=== PATIENT | female | born 1985 ===

== ENCOUNTER 2022-05-21 12:56 | Emergency (ER) | payer MEDICAID, SELFPAY ==
[2022-05-21 13:20] VITALS: BP 121/75; PULSE 71; RESP 18; TEMP 36.6; O2SAT 100; BMI 32.1
--- NOTE | 2022-05-21 13:27 | ED_ITS ---
HPI - Headache General Chief Complaint: Headache <Rodríguez Quiroga MD - Last Filed: 05/21/22 13:30> Stated Complaint: Migraine <Rodríguez Quiroga MD - Last Filed: 05/21/22 13:30> Time Seen by Provider: 05/21/22 13:47 <Rodríguez Quiroga MD - Last Filed: 05/21/22 13:30> Source: patient and step down nurse <Radha Cardoza NP - Last Filed: 05/21/22 17:41> Mode of arrival: ambulatory <Radha Cardoza NP - Last Filed: 05/21/22 17:41> Limitations: language barrier <Radha Cardoza NP - Last Filed: 05/21/22 17:41> History of Present Illness HPI Narrative: 37-year-old female with a history of nephrectomy, stroke with right-sided weakness, migraine disorder here with complaints of headache which wraps around like a band around the patient's head with pressure with photophobia and nausea. Patient reports 1 episode of vomiting last night. No phonophobia, dizziness. No weakness, numbness or tingling. Patient has history of migraines and states this feels similar. Patient reports she took Tylenol with continued headache. <Radha Cardoza NP - Last Filed: 05/21/22 17:41> Related Data Allergies/Adverse Reactions: Allergies Allergy/AdvReac Type Severity Reaction Status Date / Time famotidine Allergy Unknown Unknown Verified 05/21/22 14:25 <Rodríguez Quiroga MD - Last Filed: 05/21/22 13:30> Review of Systems Review of Systems: Yes all other systems are reviewed and are negative <Radha Cardoza NP - Last Filed: 05/21/22 17:41> Constitutional: Constitutional: Reports no additional constitutional complaints, Denies body ache(s), Denies chills, Denies fever(s), Reports headache(s) and Denies weakness <Radha Cardoza NP - Last Filed: 05/21/22 17:41> Eyes: Eyes: Reports no additional eye complaints, Denies change in vision and Reports photophobia <Radha Cardoza NP - Last Filed: 05/21/22 17:41> ENT: Reports system reviewed and no additional complaints, except as documented, Denies dizziness, Reports headache(s), Denies nasal congestion, Denies nasal discharge and Denies neck pain <Radha Cardoza NP - Last Filed: 05/21/22 17:41> Cardiovascular: Cardiovascular: Reports no additional cardiovascular complaints, Denies chest pain, Denies leg edema and Denies dyspnea <Radha Cardoza NP - Last Filed: 05/21/22 17:41> Respiratory: Respiratory: Reports no additional respiratory complaints, Denies cough and Denies dyspnea <Radha Cardoza NP - Last Filed: 05/21/22 17:41> Gastrointestinal: Gastrointestinal: Reports no additional gastrointestinal complaints, Denies abdominal pain, Denies diarrhea, Reports nausea and Reports vomiting <Radha Cardoza NP - Last Filed: 05/21/22 17:41> Genitourinary: Genitourinary: Reports no additional female genitourinary complaints and Denies urinary incontinence <Radha Cardoza NP - Last Filed: 05/21/22 17:41> Musculoskeletal: Musculoskeletal: Reports no additional musculoskeletal complaints, Denies back pain, Denies arthralgias, Denies joint swelling, Denies neck pain, Denies numbness and Denies tingling <Radha Cardoza NP - Last Filed: 05/21/22 17:41> Integumentary/Breasts: Skin/Breast: Reports system reviewed and no additional complaints, except as docu and Denies rash <Radha Cardoza NP - Last Filed: 05/21/22 17:41> Neurologic: Reports system reviewed and no additional complaints, except as documented, Denies Abnormal speech present, Denies dizziness, Reports headache(s), Denies numbness, Denies tingling and Denies weakness <Radha Cardoza NP - Last Filed: 05/21/22 17:41> [facility] Past Medical History Attestation statement: The following information was validated with the patient. <LYNNE Ambrose Last Filed: 05/21/22 17:41> Source: old records reviewed and nursing notes reviewed <Radha Cardoza NP - Last Filed: 05/21/22 17:41> Social History Social History: Social History Advance Directives: No Advance Directives Information Provided: Yes <Rodríguez Quiroga MD - Last Filed: 05/21/22 13:30> Physical Exam Vital Signs: Vital Signs: Last Vital Signs Temp 97.9 F 05/21/22 13:20 Pulse 71 05/21/22 13:20 Resp 18 05/21/22 13:20 BP 121/75 05/21/22 13:20 Pulse Ox 100 05/21/22 13:20 O2 Del Method 05/21/22 13:20 BMI result Body Mass Index 32.1 <Rodríguez Quiroga MD - Last Filed: 05/21/22 13:30> Vital Signs: Last Vital Signs Temp 97.9 F 05/21/22 13:20 Pulse 71 05/21/22 13:20 Resp 18 05/21/22 13:20 BP 121/75 05/21/22 13:20 Pulse Ox 100 05/21/22 13:20 O2 Del Method 05/21/22 13:20 BMI result Body Mass Index 32.1 <Radha Cardoza NP - Last Filed: 05/21/22 17:41> Const: General: cooperative, healthy appearing, comfortable and no acute distress <Radha Cardoza NP - Last Filed: 05/21/22 17:41> Orientation/consciousness: patient oriented x3 <Radha Cardoza NP - Last Filed: 05/21/22 17:41> Limitations: no limitations <Radha Cardoza NP - Last Filed: 05/21/22 17:41> HEENT: Head: Yes normal to inspection and No Temporal artery tenderness present <Radha Cardoza NP - Last Filed: 05/21/22 17:41> Ears: hearing grossly normal bilaterally and TM's normal bilaterally <Radha Cardoza NP - Last Filed: 05/21/22 17:41> General nose exam: Normal external nose present <Radha Cardoza NP - Last Filed: 05/21/22 17:41> Face and sinus: Yes normal facial exam <Radha Cardoza NP - Last Filed: 05/21/22 17:41> Mouth: Normal oral and palatal mucosa present <Radha Cardoza NP - Last Filed: 05/21/22 17:41> Throat: Yes posterior oropharynx normal, Yes tonsils normal and Yes uvula midline <Radha Cardoza NP - Last Filed: 05/21/22 17:41> Eyes: General: appearance normal, both eyes and all related structures <Radha Cardoza [employer] - Last Filed: 05/21/22 17:41> Pupils: Equal, round and reactive pupils present <Radha Cardoza [employer] T[employer] HELPER - Last Filed: 05/21/22 17:41> Direct Ophthalmoscopy: photophobia <Radha Cardoza NP - Last Filed: 05/21/22 17:41> Neck: Neck: Yes normal visual inspection, Yes full ROM, Yes no lymphadenopathy and Yes no meningeal signs <Radha Cardoza NP - Last Filed: 05/21/22 17:41> Chest: Chest palpation & inspection: normal inspection of the chest <Radha Cardoza NP - Last Filed: 05/21/22 17:41> Resp: Effort & Inspection: normal respiratory effort <Radha Cardoza NP - Last Filed: 05/21/22 17:41> Auscultation: clear to auscultation bilaterally <Radha Cardoza NP - Last Filed: 05/21/22 17:41> Cardio: Rate: regular rate <Radha Cardoza NP - Last Filed: 05/21/22 17:41> Rhythm: regular rhythm <Radha Cardoza NP - Last Filed: 05/21/22 17:41> Peripheral pulses: Peripheral pulses 2+ throughout <Radha Cardoza NP - Last Filed: 05/21/22 17:41> GI: Inspection: Yes normal to inspection <aRdha Cardoza NP - Last Filed: 05/21/22 17:41> Palpation (GI): Soft to palpation and nontender <Radha Cardoza NP - Last Filed: 05/21/22 17:41> Auscultation: normal bowel sounds <Radha Cardoza NP - Last Filed: 05/21/22 17:41> Back/Spine/Pelvis: Thoracic/Lumbar Spine: thoracic and lumbar spine normal to inspection <Radha Cardoza NP - Last Filed: 05/21/22 17:41> Skin: General skin exam: no rashes or lesions noted <Radha Cardoza NP - Last Filed: 05/21/22 17:41> Neuro: General: patient oriented x3, no meningeal signs, no focal motor deficits and normal sensation to monofilament <Radha Cardoza NP - Last Filed: 05/21/22 17:41> Cranial nerves: Yes CN's II-XII intact bilaterally, Yes Equal, round and reactive pupils present, Yes Bilaterally intact EOM present, Yes Nystagmus not present, Yes Normal facial strength present and Yes Midline tongue present <Radha Cardoza NP - Last Filed: 05/21/22 17:41> Cognition (Neuro): normal cognition <Radha Cardoza NP - Last Filed: 05/21/22 17:41> Speech: No Abnormal speech present <Radha Cardoza NP - Last Filed: 05/21/22 17:41> Gait exam (Neuro): Normal gait present <Radha Cardoza NP - Last Filed: 05/21/22 17:41> Motor exam (neuro): 5/5 motor strength present throughout <Radha Cardoza NP - Last Filed: 05/21/22 17:41> Sensory Exam: Normal double simultaneous stimulation for sensation <Radha Cardoza NP - Last Filed: 05/21/22 17:41> Extrem: General: Yes normal to inspection <Radha Cardoza NP - Last Filed: 05/21/22 17:41> Course Course Course Narrative: Pain is resolved. Patient tolerating p.o.. Will discharge home reviewed worrisome signs symptoms of when to return to the emergency room. Comfortable for discharge home. <Radha Cardoza NP - Last Filed: 05/21/22 17:41> Reevaluation(s) Reevaluation #1: 37 yo female with PMH of nephrectomy presents with migraine headache since yesterday. The patient only takes acetaminophen, and she was told she could not take any other medications for migraine headache. No other concerning symptoms at this time. <Rodríguez Quiroga MD - Last Filed: 05/21/22 13:30> Time: 13:27 <Rodríguez Quiroga MD - Last Filed: 05/21/22 13:30> Medications Administered Discontinued Medications Generic Name Dose Route Start Last Admin Trade Name Freq PRN Reason Stop Dose Admin Diphenhydramine HCl 25 mg 05/21/22 14:26 05/21/22 15:30 Diphenhydramine Hcl 50 Mg/Ml Vial IVPUSH 05/21/22 14:27 25 mg ONCE ONE Administration Sodium Chloride 1,000 mls @ 999 mls/hr 05/21/22 14:26 05/21/22 15:30 Ns IV 05/21/22 15:26 999 mls/hr .Q1H1M STA Administration Metoclopramide HCl 10 mg 05/21/22 14:26 05/21/22 15:30 Metoclopramide Hcl 10 Mg/2 Ml Vial IVPUSH 05/21/22 14:27 10 mg ONCE ONE Administration <Rodríguez Quiroga MD - Last Filed: 05/21/22 13:30> Medications Administered Discontinued Medications Generic Name Dose Route Start Last Admin Trade Name Freq PRN Reason Stop Dose Admin Diphenhydramine HCl 25 mg 05/21/22 14:26 05/21/22 15:30 Diphenhydramine Hcl 50 Mg/Ml Vial IVPUSH 05/21/22 14:27 25 mg ONCE ONE Administration Sodium Chloride 1,000 mls @ 999 mls/hr 05/21/22 14:26 05/21/22 15:30 Ns IV 05/21/22 15:26 999 mls/hr .Q1H1M STA Administration Metoclopramide HCl 10 mg 05/21/22 14:26 05/21/22 15:30 Metoclopramide Hcl 10 Mg/2 Ml Vial IVPUSH 05/21/22 14:27 10 mg ONCE ONE Administration <Radha Cardoza NP - Last Filed: 05/21/22 17:41> MDM - Headache MDM Narrative Medical decision making narrative: 37-year-old female with history of migraines, CVA with right-sided deficits, nephrectomy here with her complaints of headache since last night with photophobia, nausea and vomiting which feels similar to her previous migraines. She did take Tylenol with no relief and pain. Patient did not know also takes she came here. Patient has normal neuro exam. She reports right-sided arm weakness from a previous stroke but I do not appreciate any on exam. Vitals are stable. Will give IV fluids, Reglan, Benadryl. Will check COVID screen, urine . Low concern for meningitis with no reports of fever, meningeal signs, nuchal rigidity. Low concern for pseudotumor cerebri with no complaints of worsening headache with position changes. Low concern for temporal arteritis with no fever, temporal artery tenderness. <Radha Cardoza NP - Last Filed: 05/21/22 17:41> Differential Diagnosis Differential diagnosis: Likely migraine <Radha Cardoza NP - Last Filed: 05/21/22 17:41> Medical Records Attestation: I reviewed the patient's medical records. <Radha Cardoza NP - Last Filed: 05/21/22 17:41> Lab Data Attestation: I reviewed the patient's lab results. <Radha Cardoza NP - Last Filed: 05/21/22 17:41> Labs: Lab Results 05/21/22 05/21/22 Range/Units 14:55 14:59 Urine Test NEGATIVE (NEGATIVE) COVID-19 (VLAD) Negative (Negative) COVID-19 Clin Com See Note <Rodríguez Quiroga MD - Last Filed: 05/21/22 13:30> Lab Results 05/21/22 05/21/22 Range/Units 14:55 14:59 Urine Test NEGATIVE (NEGATIVE) COVID-19 (VLAD) Negative (Negative) COVID-19 Clin Com See Note <Radha Cardoza NP - Last Filed: 05/21/22 17:41> Discharge Plan Discharge Clinical Impression: Migraine <Rodríguez Quiroga MD - Last Filed: 05/21/22 13:30> Patient Disposition: Home, Self-Care <Rodríguez Quiroga MD - Last Filed: 05/21/22 13:30> Instructions: Migraine Headache (ED) <Rodríguez Quiroga MD - Last Filed: 05/21/22 13:30> Referrals: Physician,None [Primary Care Provider] - 1 week <Rodríguez Quiroga MD - Last Filed: 05/21/22 13:30> Stand Alone Forms: Work/School Release <Rodríguez Quiroga MD - Last Filed: 05/21/22 13:30> Interventions: ED Discharge Assessment Last Done: 05/21/22 17:28 <Rodríguez Quiroga MD - Last Filed: 05/21/22 13:30> Discharge Date/Time: 05/21/22 17:28 <Rodríguez Quiroga MD - Last Filed: 05/21/22 13:30> Print Language: Swedish <Rodríguez Quiroga MD - Last Filed: 05/21/22 13:30>
[2022-05-21 15:12] LABS: COVID-19 Test Negative (Negative); IDNOW Serial# 16C4AD1C
[2022-05-21 15:13] LABS: UPreg QC Valid YES; Urine Pregnancy NEGATIVE (NEGATIVE)
[2022-05-21] MEDS: diphenhydrAMINE HCL 50 MG/ML VIAL 25 MG IVPUSH (15:30)
[2022-05-21] MEDS: 0.9 % Sodium Chloride 1,000 ML 999 ML IV (15:30)
[2022-05-21] MEDS: Metoclopramide HCl 10 MG/2 ML VIAL IVPUSH (15:30)
== END 2022-05-21 17:28 | disposition home or self-care (01) ==
PROVIDERS: Nurse Practitioner Family; Emergency Provider Emergency Medicine
DX: G43.909 Migraine, unspecified, not intractable, without status migrainosus (principal); Z20.822 Contact with and (suspected) exposure to COVID-19; Z79.899 Other long term (current) drug therapy
CPT/HCPCS: 81025; 87635; 96374; 96375; 99283; 99284; J1200; J2765

== ENCOUNTER 2022-06-26 18:48 | Emergency (ER) | payer MEDICAID, SELFPAY ==
[2022-06-26 19:08] VITALS: BP 124/55; PULSE 78; RESP 18; TEMP 36.4; O2SAT 98; BMI 33.0
--- NOTE | 2022-06-26 19:15 | ED.URI ---
HPI - URI/Sore Throat General Chief Complaint: Upper Respiratory Symptoms <PASCUAL Morrow Last Filed: 06/26/22 19:17> Stated Complaint: flu like symptoms <PASCUAL Morrow Last Filed: 06/26/22 19:17> Time Seen by Provider: 06/26/22 19:22 <PASCUAL Morrow Last Filed: 06/26/22 19:17> Source: patient <PASCUAL Roman Last Filed: 06/26/22 21:26> Mode of arrival: ambulatory <PASCUAL Roman Last Filed: 06/26/22 21:26> Limitations: no limitations <PASCUAL Roman Last Filed: 06/26/22 21:26> History of Present Illness HPI Narrative: This is a 37-year-old female who tells me she only has 1 kidney presenting to the emergency department with complaints of sore throat, body aches, fatigue, malaise, subjective fevers and chills, dry cough, chest pain only with coughing x2 days. Patient tells me she has been around her who is currently COVID positive. She tells me with bothering her most is her sore throat. She tells me she took a rapid COVID test at home which was negative. Patient denies shortness of breath, nausea, vomiting, abdominal pain, diarrhea, constipation, weakness, vision changes, dizziness, head trauma. <PASCUAL Roman Last Filed: 06/26/22 21:26> Related Data Allergies/Adverse Reactions: Allergies Allergy/AdvReac Type Severity Reaction Status Date / Time famotidine Allergy Unknown Unknown Verified 05/21/22 14:25 <PASCUAL Morrow Last Filed: 06/26/22 19:17> Review of Systems Review of Systems: Constitutional : No Weight loss, No Fever, No Chills, + Fatigue, + Malaise ENT/Mouth : + sore throat, No Rhinorrhea Eyes: No Eye Pain, No Swelling, No Redness Cardiovascular : No Chest Pain, No SOB, No Dyspnea on Exertion, No Orthopnea, No Edema, No Palpitations Respiratory : + Cough, No Sputum, No Wheezing Gastrointestinal : No Nausea, No Vomiting, No Diarrhea, No Constipation, No abdominal Pain, No Hematochezia, No Melena Genitourinary : No Dysuria, No Urinary Frequency, No Hematuria, Musculoskeletal : No joint pain, + Myalgias, No Joint Swelling Skin : No Skin Lesions, No rash Neuro : No Weakness, No Numbness, No Dizziness, +No Headache Psych : No Anxiety/Panic, No Depression All other systems reviewed and are negative <PASCUAL Roman - Last Filed: 06/26/22 21:26> Yes all other systems are reviewed and are negative <PASCUAL Roman - Last Filed: 06/26/22 21:26> [facility] Past Medical History Attestation statement: The following information was validated with the patient. <PASCUAL Roman - Last Filed: 06/26/22 21:26> Source: old records reviewed and nursing notes reviewed <PASCUAL Roman - Last Filed: 06/26/22 21:26> Social History Social History: Social History Advance Directives: No Advance Directives Information Provided: No <PASCUAL Morrow - Last Filed: 06/26/22 19:17> Physical Exam Vital Signs: Vital Signs: Last Vital Signs Temp 97.6 F 06/26/22 19:08 Pulse 78 06/26/22 19:08 Resp 18 06/26/22 19:08 BP 124/55 L 06/26/22 19:08 Pulse Ox 98 06/26/22 19:08 O2 Del Method 06/26/22 19:08 BMI result Body Mass Index 33.0 <PASCUAL Morrow - Last Filed: 06/26/22 19:17> Vital Signs: Last Vital Signs Temp 97.6 F 06/26/22 19:08 Pulse 78 06/26/22 19:08 Resp 18 06/26/22 19:08 BP 124/55 L 06/26/22 19:08 Pulse Ox 98 06/26/22 19:08 O2 Del Method 06/26/22 19:08 BMI result Body Mass Index 33.0 vss <PASCUAL Roman - Last Filed: 06/26/22 21:26> Appearance: Alert.? Oriented X3.? No acute distress.? Head: Normocephalic, atraumatic, no step-offs or deformities Eyes: Pupils equal, round and reactive to light.? ENT: Pharynx normal.?Uvula midline. Normal tonsils no exudate, edema or errythema. Neck: Normal inspection.? Neck supple.? CVS: Normal heart rate and rhythm.? Pulses normal.? Respiratory: No respiratory distress.? Breath sounds normal.? Abdomen: Soft and nontender.? Skin: Skin warm and dry.? Normal skin color.? Normal skin turgor.? Extremities: No lower extremity edema.? No calf ttp. 5/5 strength to bilateral upper and lower extremities Neuro: Oriented X 3.? No motor deficit.? No sensory deficit. CN 2-12 intact . Normal [id number], [id number], steady tandem gait with normal coordination. <PASCUAL Roman - Last Filed: 06/26/22 21:26> Course Course Course Narrative: 19:15 - 37 yo [place] speaking female presenting with body aches, headaches, cough w/ chest pains, sore throat since yesterday. is home w/ COVID. Spo2 98%, lungs clear. Appears well. Will check viral swab. <PASCUAL Morrow - Last Filed: 06/26/22 19:17> Reevaluation(s) Reevaluation #1: Patient positive for COVID. Discussed antiviral medicine she tells me she will think about it and speak to her PCP and pharmacist. Educated on supportive measures. Educated patient on diagnosis and treatment plan, answered all question, patient verbalizes understanding. At this time patient will be discharged home, advised to return with new or worsening symptoms. Educated on worrisome signs and symptoms and when to return. At this time I feel comfortable discharge home. <PASCUAL Roman - Last Filed: 06/26/22 21:26> Time: : <PASCUAL Roman - Last Filed: 06/26/22 21:26> Medical Decision Making Medical Decision Making MDM Narrative: 1998 37-year-old female presents with viral symptoms x2 days. Patient reports is COVID positive. Physical examination benign. No signs of peritonsillar abscess, epiglottitis. No signs of pneumonia. Headache likely secondary to viral infection unlikely intracranial hemorrhage, stroke. Unlikely PE. Plan at this time viral testing <PASCUAL Roman Last Filed: 06/26/22 21:26> Lab Data Labs: Lab Results 06/26/22 Range/Units 19:16 Influenza Type A (PCR) NEGATIVE (Negative) Influenza Type B (PCR) NEGATIVE (Negative) RSV RNA Qual (PCR) NEGATIVE (Negative) SARS-CoV-2 RNA (RT-PCR) POSITIVE A (Negative) <PASCUAL Morrow Last Filed: 06/26/22 19:17> Lab Results 06/26/22 Range/Units 19:16 Influenza Type A (PCR) NEGATIVE (Negative) Influenza Type B (PCR) NEGATIVE (Negative) RSV RNA Qual (PCR) NEGATIVE (Negative) SARS-CoV-2 RNA (RT-PCR) POSITIVE A (Negative) <PASCUAL Roman Last Filed: 06/26/22 21:26> Critical Care Time Critical Care Time Critical Care Time: No <PASCUAL Roman Last Filed: 06/26/22 21:26> Discharge Plan Discharge Clinical Impression: Viral infection, COVID-19 <PASCUAL Morrow Last Filed: 06/26/22 19:17> Patient Disposition: Home, Self-Care <PASCUAL Morrow Last Filed: 06/26/22 19:17> Instructions: Viral Syndrome (ED), COVID-19 (Coronavirus Disease 2019) (ED) <PASCUAL Morrow Last Filed: 06/26/22 19:17> Additional Instructions: Take your medications as prescribed. If you were prescribed antibiotics today, it is important that you take your medication to their entirety, do not skip any doses, do not finish them early. Today you tested positive for COVID-19. Take Ibuprofen or Tylenol as needed for fevers or body aches. Quarantine for 5 days and ensure you wear a mask. After 5 days you should wear a mask for 5 days after that. Practice social distancing and good hand hygiene. Drink plenty of fluids. Follow-up with your primary care provider this week. Return to the emergency department with new or worsening symptoms. In case of emergency call 911 You can purchase a pulse oximeter from your local pharmacy or grocery store, and monitor your oxygen saturation if it goes below 94% you should return to the emergency department for further evaluation. <PASCUAL Morrow - Last Filed: 06/26/22 19:17> Referrals: [facility] [Primary Care Provider] - 2 days <PASCUAL Morrow - Last Filed: 06/26/22 19:17> Stand Alone Forms: Work/School Release <PASCUAL Morrow - Last Filed: 06/26/22 19:17>
[2022-06-26 20:21] LABS: Influenza A PCR NEGATIVE (Negative); Influenza B PCR NEGATIVE (Negative); Resp Syncy Virus RNA Qual PCR NEGATIVE (Negative); SARS COV2 PCR INHOUSE POSITIVE (Negative)
== END 2022-06-26 21:38 | disposition home or self-care (01) ==
PROVIDERS: Emergency Provider Emergency Medicine
DX: M79.10 Myalgia, unspecified site (principal); R50.9 Fever, unspecified; R07.89 Other chest pain; Z20.822 Contact with and (suspected) exposure to COVID-19
CPT/HCPCS: 0241U; 99282; 99283

== ENCOUNTER 2022-08-16 12:35 | Emergency (ER) | payer MEDICAID, SELFPAY ==
--- NOTE | ~2022-08-16 | CT_ITS ---
EXAMINATION: CERVICAL AND FACIAL BONE CT WITHOUT IV CONTRAST CLINICAL INFORMATION: Trauma to head and face COMPARISON: None TECHNIQUE: Axial images through the head and facial bones without IV contrast. Sagittal and coronal reconstructions on the technologist workstation. Patient dose 9 7 0 mg/cm. This CT examination was performed using dose optimization techniques as appropriate, variously including the following: *Automated exposure control *Adjustment of mA and/or kV according to patient size (this includes techniques or standardized protocols for targeted exams where dose is matched to indication/reason for exam; i.e. extremities or head) *Use of iterative reconstruction technique FINDINGS: Head CT: There is no evidence for an extra-axial collection. There is no evidence for intra-or extra-axial hemorrhage. The ventricles and extra-axial CSF spaces are appropriate. Chaparro-white matter differentiation is normal. 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 No mass, mass effect or acute infarct is seen. Review of bone windows is normal. Facial bone CT: There are bilateral age indeterminate nasal bone fractures. No associated soft tissue swelling is seen in these may not be acute. No other fracture is seen. There is minimal inflammatory change seen in the left maxillary sinus. Paranasal sinuses are otherwise clear. Mastoid air cells and middle ears are clear. The orbits are normal appearing. Poor dentition. Soft tissues are normal. CT/CT facial bones wo IV con IMPRESSION: Head CT: No acute findings. Facial bone CT: Bilateral nondisplaced age indeterminate nasal bone fractures. Clinical correlation recommended. No other fracture seen. Minimal inflammatory changes in the left maxillary sinus.
--- NOTE | ~2022-08-16 | CT_ITS ---
EXAMINATION: CERVICAL AND FACIAL BONE CT WITHOUT IV CONTRAST CLINICAL INFORMATION: Trauma to head and face COMPARISON: None TECHNIQUE: Axial images through the head and facial bones without IV contrast. Sagittal and coronal reconstructions on the technologist workstation. Patient dose 9 7 0 mg/cm. This CT examination was performed using dose optimization techniques as appropriate, variously including the following: *Automated exposure control *Adjustment of mA and/or kV according to patient size (this includes techniques or standardized protocols for targeted exams where dose is matched to indication/reason for exam; i.e. extremities or head) *Use of iterative reconstruction technique FINDINGS: Head CT: There is no evidence for an extra-axial collection. There is no evidence for intra-or extra-axial hemorrhage. The ventricles and extra-axial CSF spaces are appropriate. Chaparro-white matter differentiation is normal. 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 No mass, mass effect or acute infarct is seen. Review of bone windows is normal. Facial bone CT: There are bilateral age indeterminate nasal bone fractures. No associated soft tissue swelling is seen in these may not be acute. No other fracture is seen. There is minimal inflammatory change seen in the left maxillary sinus. Paranasal sinuses are otherwise clear. Mastoid air cells and middle ears are clear. The orbits are normal appearing. Poor dentition. Soft tissues are normal. CT/CT head/brain wo IV con IMPRESSION: Head CT: No acute findings. Facial bone CT: Bilateral nondisplaced age indeterminate nasal bone fractures. Clinical correlation recommended. No other fracture seen. Minimal inflammatory changes in the left maxillary sinus.
[2022-08-16 12:48] VITALS: BP 107/51; PULSE 89; RESP 20; TEMP 37.1; O2SAT 98; BMI 31.1
--- NOTE | 2022-08-16 12:50 | ED.WOUNDLAC ---
HPI - Wound/Laceration General Chief Complaint: Skin/Abscess/Foreign Body <PASCUAL Washington Last Filed: 08/16/22 12:52> Stated Complaint: dresser fell on nose at home <PASCUAL Washington Last Filed: 08/16/22 12:52> Time Seen by Provider: 08/16/22 14:15 <PASCUAL Washington Last Filed: 08/16/22 12:52> Source: patient <PASCUAL Bonner Last Filed: 08/16/22 17:10> Mode of arrival: ambulatory <PASCUAL Bonner Last Filed: 08/16/22 17:10> History of Present Illness HPI narrative: 37-year-old female with no significant past medical history presenting to the ED complaining nasal/forehead pain, swelling, and laceration s/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 Denies taking anticoagulation. Denies LOC. Reports was falling backwards however boyfriend caught her. Reports initial dizziness improved at present. Denies vision change/loss, nausea/vomiting, neck/back pain. Tetanus unknown <PASCUAL Bonner Last Filed: 08/16/22 17:10> Onset (ago): hour(s) <PASCUAL Bonner Last Filed: 08/16/22 17:10> Related Data Allergies/Adverse Reactions: Allergies Allergy/AdvReac Type Severity Reaction Status Date / Time famotidine Allergy Unknown Unknown Verified 05/21/22 14:25 <PASCUAL Washington Last Filed: 08/16/22 12:52> Review of Systems Review of Systems: Constitutional: No Fever, No Chills ENT/Mouth: +nasal pain, No Ear Pain, No Nasal Congestion, + Sinus Pain, No Hoarseness, No sore throat, No Rhinorrhea, No Swallowing Difficulty Cardiovascular: No Chest Pain, No SOB Respiratory: No Cough, No Sputum Gastrointestinal: No Nausea, No Vomiting, No Diarrhea, No Abdominal pain Genitourinary: No Hematuria, No Urinary Incontinence/retention Musculoskeletal: No joint pain, No Myalgias, No Joint Swelling Skin: + Skin Lesions, No rash Neuro: No Weakness, No Numbness, No Paresthesias, + dizziness (resolved), +headache <PASCUAL Bonner Last Filed: 08/16/22 17:10> Yes all other systems are reviewed and are negative <PASCUAL Bonner - Last Filed: 08/16/22 17:10> Constitutional: Constitutional: Reports as per HPI <PASCUAL Bonner - Last Filed: 08/16/22 17:10> Neurologic: Denies Abnormal speech present <PASCUAL Bonner - Last Filed: 08/16/22 17:10> [facility] Past Medical History Attestation statement: The following information was validated with the patient. <PASCUAL Bonner - Last Filed: 08/16/22 17:10> Social History Social History: Social History Advance Directives: No Advance Directives Information Provided: Yes <PASCUAL Washington - Last Filed: 08/16/22 12:52> Physical Exam Vital Signs: Vital Signs: Last Vital Signs Temp 98.4 F 08/16/22 16:09 Pulse 63 08/16/22 16:09 Resp 18 08/16/22 16:09 BP 119/73 08/16/22 16:09 Pulse Ox 99 08/16/22 16:09 O2 Del Method 08/16/22 16:09 BMI result Body Mass Index 31.1 <PASCUAL Washington - Last Filed: 08/16/22 12:52> Vital Signs: Last Vital Signs Temp 98.4 F 08/16/22 16:09 Pulse 63 08/16/22 16:09 Resp 18 08/16/22 16:09 BP 119/73 08/16/22 16:09 Pulse Ox 99 08/16/22 16:09 O2 Del Method 08/16/22 16:09 BMI result Body Mass Index 31.1 <PASCUAL Bonner - Last Filed: 08/16/22 17:10> Const: General: cooperative, healthy appearing and no acute distress <PASCUAL Bonner - Last Filed: 08/16/22 17:10> Orientation/consciousness: patient oriented x3 <PASCUAL Bonner - Last Filed: 08/16/22 17:10> Limitations: no limitations <PASCUAL Bonner - Last Filed: 08/16/22 17:10> HEENT: Other: + central and right-sided forehead with noted swelling and diffuse tenderness. No palpable skull depression. No crepitus. + nasal bridge with small closed laceration. Bleeding controlled. Nose symmetrical. No appreciable septal hematoma or epistaxis <PASCUAL Bonner - Last Filed: 08/16/22 17:10> Head: Yes normal to inspection, Yes atraumatic, No Beasley's sign, No palpable skull fracture and No raccoon eyes <PASCUAL Bonner - Last Filed: 08/16/22 17:10> Ears: hearing grossly normal bilaterally, TM's normal bilaterally and mastoids normal <PASCUAL Bonner - Last Filed: 08/16/22 17:10> General nose exam: no epistaxis and no foreign body in nares <PASCUAL Bonner - Last Filed: 08/16/22 17:10> Face and sinus: Yes normal facial exam <PASCUAL Bonner - Last Filed: 08/16/22 17:10> Throat: Yes posterior oropharynx normal, Yes tonsils normal, Yes uvula midline, No peritonsillar mass, No uvula laterally displaced and No uvular edema <PASCUAL Bonner - Last Filed: 08/16/22 17:10> Eyes: General: appearance normal, both eyes and all related structures <PASCUAL Bonner - Last Filed: 08/16/22 17:10> Pupils: Equal, round and reactive pupils present <PASCUAL Bonner Last Filed: 08/16/22 17:10> EOM: EOMs intact bilaterally <PASCUAL Bonner - Last Filed: 08/16/22 17:10> Neck: Other: No midline cervical spinous tenderness <PASCUAL Bonner - Last Filed: 08/16/22 17:10> Neck: Yes normal visual inspection and Yes no meningeal signs <PASCUAL Bonner - Last Filed: 08/16/22 17:10> Resp: Effort & Inspection: normal respiratory effort and no respiratory distress <PASCUAL Bonner Last Filed: 08/16/22 17:10> Auscultation: clear to auscultation bilaterally <Felicitas Poulshadyt, PA - Last Filed: 08/16/22 17:10> Cardio: Rate: regular rate <Felicitas Pouliot, PA - Last Filed: 08/16/22 17:10> Heart sounds: S1 normal heart sound present and S2 normal heart sound present <Felicitas Poulshadyt, PA - Last Filed: 08/16/22 17:10> GI: Inspection: Yes normal to inspection <Felicitas Poulshadyt, PA - Last Filed: 08/16/22 17:10> Palpation (GI): Soft to palpation, nontender, no guarding and not rigid <Felicitas Pouliot, PA - Last Filed: 08/16/22 17:10> : General: Yes no CVA tenderness <Felicitas Pouliot, PA - Last Filed: 08/16/22 17:10> Back/Spine/Pelvis: Other: No midline thoracic/lumbar spinous tenderness/step-off or deformity <Felicitas Poulshadyt, PA - Last Filed: 08/16/22 17:10> Back: no CVA tenderness <Felicitas Pouliot, PA - Last Filed: 08/16/22 17:10> Skin: Rashes: no rashes <Felicitas Poulshadyt, PA - Last Filed: 08/16/22 17:10> Wounds: no wounds <Felicitas Poulshadyt, PA - Last Filed: 08/16/22 17:10> Neuro: General: patient oriented x3, gait normal, tone normal, moves all extremities, no meningeal signs, no focal motor deficits and CN's II-XI intact bilaterally <Felicitas Poulshadyt, PA - Last Filed: 08/16/22 17:10> Cranial nerves: Yes CN's II-XII intact bilaterally and Yes Equal, round and reactive pupils present <Felicitas Pouliot, PA - Last Filed: 08/16/22 17:10> Cognition (Neuro): normal cognition <Felicitas Poulshadyt, PA - Last Filed: 08/16/22 17:10> Speech: No Abnormal speech present <Felicitas Poulshadyt, PA - Last Filed: 08/16/22 17:10> Gait exam (Neuro): Normal gait present <Felicitas Poulshadyt, PA - Last Filed: 08/16/22 17:10> Motor exam (neuro): 5/5 motor strength present throughout <PASCUAL Bonner Last Filed: 08/16/22 17:10> Extrem: General: Yes normal to inspection <PASCUAL Bonner - Last Filed: 08/16/22 17:10> Course Course Course Narrative: E-12:51PM - 37yoF presenting to the ER with complaints of headache and nose pain after a large frame fell on her face prior to arrival. She reports she did not fall down to the ground due to her was able to catch her. She took Tylenol prior to arrival. She denies any other symptoms complaints or concerns or injuries at this time. Plan: Will obtain CT scan of facial bones and CT scan of brain patient will be sent back to waiting room to be evaluated in EM. <PASCUAL Washington - Last Filed: 08/16/22 12:52> E-12:51PM - 37yoF presenting to the ER with complaints of headache and nose pain after a large frame fell on her face prior to arrival. She reports she did not fall down to the ground due to her was able to catch her. She took Tylenol prior to arrival. She denies any other symptoms complaints or concerns or injuries at this time. Plan: Will obtain CT scan of facial bones and CT scan of brain patient will be sent back to waiting room to be evaluated in [facility]. CT head/brain wo IV con/CT facial bones wo IV con IMPRESSION: Head CT: No acute findings. ? Facial bone CT: Bilateral nondisplaced age indeterminate nasal bone fractures. Clinical correlation recommended. No other fracture seen. Minimal inflammatory changes in the left maxillary sinus.? Results discussed with patient including worrisome signs and symptoms and strict return precautions, and when to return to the emergency department. They verbalized understanding and feel safe for discharge at this time. <PASCUAL Bonner Last Filed: 08/16/22 17:10> Medications Administered Discontinued Medications Generic Name Dose Route Start Last Admin Trade Name Freq PRN Reason Stop Dose Admin Diphtheria/Tetanus/Acell Pertussis 0.5 ml 08/16/22 15:47 08/16/22 16:11 Diphth,Pertus(Acell),Tet Adult 0.5 Ml Syringe IM 08/16/22 15:48 0.5 ml .ONCE ONE Administration <PASCUAL Washington - Last Filed: 08/16/22 12:52> Medications Administered Discontinued Medications Generic Name Dose Route Start Last Admin Trade Name Cooper PRN Reason Stop Dose Admin Diphtheria/Tetanus/Acell Pertussis 0.5 ml 08/16/22 15:47 08/16/22 16:11 Diphth,Pertus(Acell),Tet Adult 0.5 Ml Syringe IM 08/16/22 15:48 0.5 ml .ONCE ONE Administration <PASCUAL Bonner - Last Filed: 08/16/22 17:10> Medical Decision Making Medical Decision Making MDM Narrative: 37-year-old female with no significant past medical history presenting to the ED complaining nasal/forehead pain, swelling, and laceration s/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 On exam vital signs stable, NAD, nontoxic appearing, physical exam as above. Concern for hematoma vs facial bone fractures. Low suspicion for ICH. No evidence of infection at this time. No septal hematoma Plan: Head/facial bone CT, update tetanus, Dermabond wound Please refer to course for remaining clinical decision making, interpretation of labs/imaging results, and discussions with consultants and/or family members. <PASCUAL Bonner - Last Filed: 08/16/22 17:10> Differential Diagnosis Differential Diagnoses: The differential diagnosis associated with the presentation includes <PASCUAL Bonner - Last Filed: 08/16/22 17:10> As above <PASCUAL Bonner - Last Filed: 08/16/22 17:10> Radiology Impression Discussion of test interpretation with radiology: I have reviewed the radiologist's reading. <PASCUAL Bonner - Last Filed: 08/16/22 17:10> Procedures Laceration Laceration 1: Site: face <PASCUAL Bonner Last Filed: 08/16/22 17:10> Size (cm): 1 <PASCUAL Bonner - Last Filed: 08/16/22 17:10> Description: flap <PASCUAL Bonner - Last Filed: 08/16/22 17:10> Depth: simple, single layer <PASCUAL Bonner - Last Filed: 08/16/22 17:10> Pre-repair: irrigated extensively <PASCUAL Bonner - Last Filed: 08/16/22 17:10> Skin layer closed with: other (Dermabond) <PASCUAL Bonner - Last Filed: 08/16/22 17:10> Discharge Plan Discharge Clinical Impression: Closed nondisplaced fracture of nasal bone, Laceration of nose <PASCUAL Washington - Last Filed: 08/16/22 12:52> Patient Disposition: Home, Self-Care <PASCUAL Washington - Last Filed: 08/16/22 12:52> Instructions: Nasal Fracture (ED), Facial Laceration (ED) <PASCUAL Washington - Last Filed: 08/16/22 12:52> Additional Instructions: You have bilateral nondisplaced nasal bone fractures Avoid any increased pressure in her head, nasal blowing, or injury Skin glue was applied to your cut, do not pick this will follow-up on its own Take Tylenol and Motrin. Ice your face If pain persists or worsen/becomes unbearable you develop constant or worsening headache, persistent nausea/vomiting or vision changes return to the ED Tiene fracturas ?seas nasales bilaterales sin desplazamiento. Evite cualquier aumento de presi?n en la shannon, sonarse la nariz o lesionarse. Vivian Tylenol y Motrin. Hielo en la anny Se aplic? pegamento para la piel a pike araceli, no lo escoja, esto dmitry? un seguimiento por s? solo Si el dolor persiste o empeora/se vuelve insoportable, presenta dolor de shannon torri o que empeora, n?useas/v?mitos persistentes o cambios en la visi?n. Vuelva al servicio de urgencias. <PASCUAL Washington - Last Filed: 08/16/22 12:52> Referrals: Physician,Unknown J [Primary Care Provider] - 5 days <PASCUAL Washington Last Filed: 08/16/22 12:52> Stand Alone Forms: Work/School Release <PASCUAL Washington Last Filed: 08/16/22 12:52> Interventions: ED Discharge Assessment Last Done: 08/16/22 16:18 <PASCUAL Washington - Last Filed: 08/16/22 12:52> Discharge Date/Time: 08/16/22 16:19 <PASCUAL Washington - Last Filed: 08/16/22 12:52> Print Language: Kyrgyz <PASUCAL Washington - Last Filed: 08/16/22 12:52>
[2022-08-16 16:09] VITALS: BP 119/73; PULSE 63; RESP 18; TEMP 36.9; O2SAT 99
[2022-08-16] MEDS: Diphth,Pertus(ACell),Tet Adult 0.5 ML SYRINGE IM (16:11)
== END 2022-08-16 16:19 | disposition home or self-care (01) ==
PROVIDERS: Emergency Provider Emergency Medicine
DX: S02.2XXA Fracture of nasal bones, initial encounter for closed fracture (principal); S01.21XA Laceration without foreign body of nose, initial encounter; W20.8XXA Other cause of strike by thrown, projected or falling object, initial encounter; Y93.9 Activity, unspecified; Y92.039 Unspecified place in apartment as the place of occurrence of the external cause; Y99.9 Unspecified external cause status
CPT/HCPCS: 12011; 70450; 70486; 90471; 90715; 99282; 99284

== ENCOUNTER 2023-03-31 11:55 | Emergency (ER) | payer MEDICAID, SELFPAY ==
--- NOTE | 2023-03-31 11:58 | ECG_ITS ---
Test Reason : kidney Blood Pressure : / mmHG Vent. Rate : 063 BPM Atrial Rate : 063 BPM P-R Int : 126 ms QRS Dur : 078 ms QT Int : 446 ms P-R-T Axes : 043 -12 -03 degrees QTc Int : 456 ms Normal sinus rhythm Possible Anterior infarct , age undetermined Abnormal ECG No previous ECGs available Referred By: Lilli Marti Electronically Signed By:ABILIO ARAIZA
[2023-03-31 13:21] VITALS: BP 107/44; PULSE 73; RESP 20; TEMP 36.2; O2SAT 99; BMI 35.8
--- NOTE | 2023-03-31 13:25 | ED.GENADULT ---
HPI - General Adult General Chief complaint: General Medical Stated complaint: Pelvic pain/cp Related Data Allergies Allergy/AdvReac Type Severity Reaction Status Date / Time famotidine Allergy Unknown Unknown Verified 05/21/22 14:25 Physical Exam ED Vital Signs: BMI result Body Mass Index 35.8 Course Course Course Narrative: This is an RME: Additional HPI, ROS, PE not included below will be deferred to primary provider. This is a [id number], with a hx of , presenting to the emergency department with a complaint of pelvic pain since yesterday. Reporting chest pain/discomfort x 1 week. Plan: EKG, labs, UA, further ER evaluation needed by primary provider for further diagnostics. Pt left without treatment prior to full eval by provider and before labs were performed. Discharge Plan Discharge Clinical Impression: Pelvic pain Patient Disposition: Left W/O Completing Treatment Discharge Date/Time: 03/31/23 19:53
== END 2023-03-31 19:53 | disposition left against medical advice (07) ==
LOC: HO.ED 19:49
PROVIDERS: Emergency Provider Emergency Medicine
DX: R07.89 Other chest pain (principal); R10.2 Pelvic and perineal pain
CPT/HCPCS: 93005; 99283

== ENCOUNTER 2023-03-31 17:51 | Outpatient (REF) | payer MEDICAID, SELFPAY ==
[2023-04-01 11:52] LABS: CT PCR NOT DETECTED (Not Detect.); NG PCR NOT DETECTED (Not Detect.)
[2023-04-01 12:08] LABS: BV Int Neg Control Negative (Negative); BV Int Pos Control Positive (Positive)
== END 2023-03-31 17:52 | disposition home or self-care (01) ==
LOC: HO.HHCLNP 17:51
PROVIDERS: Visit Provider Emergency Medicine
DX: R10.30 Lower abdominal pain, unspecified (principal); Z11.3 Encounter for screening for infections with a predominantly sexual mode of transmission
CPT/HCPCS: 0353U; 87480; 87510; 87660

== ENCOUNTER 2023-06-05 10:04 | Outpatient (REF) | payer MEDICAID, SELFPAY ==
[2023-06-05 10:31] LABS: MANUAL DIFF FLAG NO
[2023-06-05 11:10] LABS: Appearance Urine Clear; Color Urine Yellow; Glucose Urine UA Negative (Negative); Leukocyte Esterase Urine Negative (Negative); Nitrite Urine Negative (Negative); PH 6.5 (5.0-9.0); Specific Gravity - Urine 1.025 (1.005-1.025); Urine Blood Negative (Negative); Urine Ketones Negative (Negative); Urine Protein Trace mg/dL (Neg-Trace)
[2023-06-05 11:17] LABS: Basophils Absolute Auto 0.1 X10*3/uL (0.0-0.2); Basophils Percent Auto 0.5 % (0-2); Eosinophils Absolute Auto 0.2 X10*3/uL (0.0-0.4); Eosinophils Percent Auto 1.9 % (0-4); Hematocrit 37.4 % (37.0-47.0); Hemoglobin 11.8 g/dl (12.0-16.0); Imm Gran Abs Auto 0.06 X10*3/uL (0.00-0.03); Imm Gran Pct Auto 0.6 % (0.0-0.4); Lymphocytes Absolute Auto 2.3 X10*3/uL (1.2-4.9); Lymphocytes Percent Auto 21.3 % (20-40); Mean Corpuscular HGB Conc 31.6 g/dl (31.0-35.0); Mean Corpuscular Hemoglobin 26.3 pg (27.0-33.0); Mean Corpuscular Volume 83.5 fL (80.0-98.0); Mean Platelet Volume 11.3 fL (9.4-12.3); Monocytes Absolute Auto 0.6 X10*3/uL (0.1-1.2); Monocytes Percent Auto 5.7 % (2-11); Neutrophils Absolute Auto 7.6 x10*3/uL (2.0-8.3); Platelet Count 301 X10*3/uL (160-400); Red Blood Count 4.48 X10*6/uL (4.20-5.50); Red Cell Distribution Width 13.9 % (11.0-16.0); White Blood Count 10.8 X10*3/uL (4.8-10.8)
[2023-06-05 11:57] LABS: Creatinine Urine 287.64 mg/dL; Microalbum/Creatinine Ratio Ur 7.9 ug/mg cr (<30)
[2023-06-05 12:15] LABS: Anion Gap 10 (12-20); Blood Urea Nitrogen 7 mg/dL (9-16); Calcium 8.9 mg/dL (8.4-10.2); Carbon Dioxide 27 mmol/L (22-29); Chloride 106 mmol/L (96-108); Estimated Glomerular Filt Rate > 60; Potassium 3.4 mmol/L (3.3-5.1); Sodium 140 mmol/L (135-145)
== END 2023-06-05 10:05 | disposition home or self-care (01) ==
LOC: HO.LAB 10:04
PROVIDERS: Visit Provider Internal Medicine Nephrology
DX: N18.9 Chronic kidney disease, unspecified (principal)
CPT/HCPCS: 36415; 80051; 81003; 82043; 82310; 82565; 82570; 84520; 85025

== ENCOUNTER 2023-09-10 09:54 | Outpatient (REF) | payer MEDICAID, SELFPAY ==
[2023-09-10 12:04] LABS: HIV AB/AG Nonreactive (Nonreactive); HIV Num 1 0.05 S/CO (0.00-0.99); ~HepC Num1 0.15 S/CO (0.00-0.79); ~Hepatitis C Antibody Nonreactive (Nonreactive)
[2023-09-10 12:16] LABS: Anion Gap 12 (12-20); Blood Urea Nitrogen 9 mg/dL (9-16); Carbon Dioxide 26 mmol/L (22-29); Chloride 104 mmol/L (96-108); Cholesterol 231 mg/dL (<200); Estimated Glomerular Filt Rate > 60; Glucose Random 97 mg/dL (60-115); HDL Cholesterol 47 mg/dL (>40); LDL Cholesterol Calculated 148 mg/dL (<100); Potassium 3.9 mmol/L (3.3-5.1); Sodium 138 mmol/L (135-145); Triglycerides 181 mg/dL (<150)
[2023-09-10 12:40] LABS: TSH reflex Free T4 2.44 uIU/mL (0.32-4.0)
[2023-09-10 15:23] LABS: Estimated Average Glucose 108 mg/dL; Hemoglobin A1c % 5.4 % (<6.0)
[2023-09-11 11:21] LABS: CT PCR NOT DETECTED (Not Detect.); NG PCR NOT DETECTED (Not Detect.)
== END 2023-09-10 09:55 | disposition home or self-care (01) ==
LOC: HO.HHCL 09:54
PROVIDERS: Visit Provider Nurse Practitioner Family
DX: Z00.00 Encounter for general adult medical examination without abnormal findings (principal); Z11.4 Encounter for screening for human immunodeficiency virus [HIV]; Z11.3 Encounter for screening for infections with a predominantly sexual mode of transmission; R53.83 Other fatigue
CPT/HCPCS: 0353U; 36415; 80048; 80061; 83036; 84443; 86803; 87389

== ENCOUNTER 2023-09-23 02:10 | Emergency (ER) | payer MEDICAID, SELFPAY ==
[2023-09-23 02:23] VITALS: BP 147/69; PULSE 80; RESP 16; TEMP 36.3; O2SAT 100; BMI 33.1
--- NOTE | 2023-09-23 03:08 | PC.NURSE ---
phlebotomy supervisor at bedside. pt a&ox4, respirations even and unlabored. pt reporting onset of neck pain and neck spasm for one day. pt reports throat pain. pt throat noted to be red, no white spots noted. pt reports it hurts to swollow liquids but reports normal PO intake.
[2023-09-23 03:14] VITALS: BP 126/72; PULSE 75; RESP 16; TEMP 36.6; O2SAT 97
[2023-09-23 03:30] LABS: IDNOW Serial# 6674DD1D; Strep A Nucleic Acid Negative (Negative)
--- NOTE | 2023-09-23 03:49 | ED_ITS ---
HPI - Neck Pain/Injury General Chief Complaint: Neck Pain/Injury Stated Complaint: gen med Time Seen by Provider: 09/23/23 02:38 Source: patient Mode of arrival: ambulatory Limitations: no limitations History of Present Illness HPI Narrative: Patient woke up yesterday morning with pain in the left side of the neck also complaining of slight sore throat for last 24 hours no fever no chills no neck injury no paresthesia in the upper extremities Related Data Previous Rx's Medication Instructions Recorded cyclobenzaprine 10 mg tablet 10 mg PO Q8H #20 tabs 09/23/23 ibuprofen 600 mg tablet 600 mg PO Q6H PRN fever or pain 09/23/23 #30 tabs Allergies Allergy/AdvReac Type Severity Reaction Status Date / Time famotidine Allergy Unknown Unknown Verified 09/23/23 02:28 Review of Systems Review of Systems: Yes all other systems are reviewed and are negative [facility] Social History Social History Smoked in Last 30 Days: No Use of substances other than those prescribed or required for medical reasons: No Advance Directives: No Patient : No Physical Exam Vital Signs: Vital Signs: Last Vital Signs Temp 97.9 F 09/23/23 06:35 Pulse 86 09/23/23 06:35 Resp 16 09/23/23 06:35 BP 137/83 09/23/23 06:35 Pulse Ox 97 09/23/23 06:35 O2 Del Method Room Air 09/23/23 06:35 BMI result Body Mass Index 33.1 Appearance: Alert. Oriented X3. No acute distress. ENT: Pharynx normal. Oral Mucosa moist Neck: Normal inspection. Neck supple. Tenderness left sternocleidomastoid muscle no lymph node palpable CVS: Normal heart rate and rhythm. Pulses normal. Respiratory: No respiratory distress. Equal air entry bilateral, no wheezing/rales/rhonchi Abdomen: Soft and nontender. Skin: Skin warm and dry. Normal skin color. Normal skin turgor. Extremities: No lower extremity edema. No calf tenderness Neuro: Oriented X 3. No motor deficit. No sensory deficit. Medications Administered Discontinued Medications Generic Name Dose Route Start Last Admin Trade Name Freq PRN Reason Stop Dose Admin Cyclobenzaprine HCl 10 mg 09/23/23 03:56 09/23/23 04:12 Cyclobenzaprine Hcl 10 Mg Tablet PO 09/23/23 03:57 10 mg ONCE ONE Administration Medical Decision Making Medical Decision Making [facility] Narrative: Patient with left sternocleidomastoid muscle spasm will give ibuprofen and Flexeril strep is negative Differential Diagnosis Differential Diagnoses: The differential diagnosis associated with the presentation includes Strep throat/muscle spasm Lab Data [facility] Lab Attestation statement: I reviewed the patient's lab results. Labs: Lab Results 09/23/23 Range/Units 03:18 Influenza Type A (PCR) NEGATIVE (Negative) Influenza Type B (PCR) NEGATIVE (Negative) RSV RNA Qual (PCR) NEGATIVE (Negative) SARS-CoV-2 RNA (RT-PCR) NEGATIVE (Negative) S. pyogenes GrpA KAYLA Negative (Negative) Discharge Plan Discharge Clinical Impression: Torticollis Patient Disposition: Home, Self-Care Instructions: Spasmodic Torticollis (ED) Additional Instructions: Take ibuprofen for pain Flexeril for muscle relaxant Apply ice pack Your spasm should get better in next few days Follow with PCP Prescriptions: New cyclobenzaprine 10 mg tablet 10 mg PO Q8H Qty: 20 0RF ibuprofen 600 mg tablet 600 mg PO Q6H PRN (Reason: fever or pain) Qty: 30 0RF Interventions: ED Discharge Assessment Last Done: 09/23/23 06:35 Discharge Date/Time: 09/23/23 06:42 Print Language: Greek
[2023-09-23 04:00] VITALS: BP 120/63; PULSE 69; RESP 16; TEMP 36.6; O2SAT 99
[2023-09-23 04:02] LABS: Influenza A PCR NEGATIVE (Negative); Influenza B PCR NEGATIVE (Negative); Resp Syncy Virus RNA Qual PCR NEGATIVE (Negative); SARS COV2 PCR INHOUSE NEGATIVE (Negative)
[2023-09-23] MEDS: Cyclobenzaprine HCl 10 MG TABLET PO (04:12)
[2023-09-23 06:00] VITALS: BP 137/83; PULSE 86; RESP 16; TEMP 36.6; O2SAT 97
[2023-09-23 06:35] VITALS: BP 137/83; PULSE 86; RESP 16; TEMP 36.6; O2SAT 97
== END 2023-09-23 06:42 | disposition home or self-care (01) ==
PROVIDERS: Emergency Provider Internal Medicine
DX: M43.6 Torticollis (principal); M54.2 Cervicalgia; Z11.52 Encounter for screening for COVID-19; Z20.822 Contact with and (suspected) exposure to COVID-19
CPT/HCPCS: 0241U; 87651; 99283; 99284

== ENCOUNTER 2023-10-08 15:11 | Outpatient (REF) | payer MEDICAID, SELFPAY ==
[2023-10-10 22:28] LABS: TS Negative Control Passed; TS Panel A 0; TS Panel B 0; TS Positive Control Passed; TSpotTB Negative (Negative)
== END 2023-10-08 15:12 | disposition home or self-care (01) ==
LOC: HO.HHCL 15:11
PROVIDERS: Visit Provider Nurse Practitioner Family
DX: Z11.1 Encounter for screening for respiratory tuberculosis (principal)
CPT/HCPCS: 36415; 86481

== ENCOUNTER 2023-11-05 12:00 | Outpatient (RCR) | payer MEDICAID, SELFPAY | END 2023-12-31 13:00 | disposition home or self-care (01) | LOC: HO.PT 12:00 | PROVIDERS: PCP Nurse Practitioner Family; Visit Provider Nurse Practitioner Family | DX: M25.562 Pain in left knee (principal) | CPT/HCPCS: 97110; 97140; 97161 ==

== ENCOUNTER 2023-11-25 19:35 | Emergency (ER) | payer MEDICAID, SELFPAY ==
[2023-11-25 19:51] VITALS: BP 126/64; PULSE 80; RESP 18; TEMP 36.2; O2SAT 100; BMI 22.2
--- NOTE | 2023-11-25 19:53 | ED.GENADULT ---
HPI - General Adult General Chief complaint: Allergic Reaction Stated complaint: rash all over body Time Seen by Provider: 11/25/23 22:37 Source: patient Mode of arrival: ambulatory Limitations: no limitations History of Present Illness ED Provider: dwain MCCALL narrative: Complaining of hives all over the body started yesterday had similar rash a month ago unknown agent does not remember any new food or chemical use no lip or tongue swelling no shortness a breath patient took 1 Benadryl prior to arrival without much response Related Data Previous Rx's ?Medication ?Instructions ?Recorded cyclobenzaprine 10 mg tablet 10 mg PO Q8H #20 tabs 09/23/23 ibuprofen 600 mg tablet 600 mg PO Q6H PRN fever or pain 09/23/23 #30 tabs diphenhydramine HCl 25 mg capsule 50 mg (2 x 25 mg) PO Q6-8H PRN 11/26/23 (Benadryl) allergic reaction #30 caps prednisone 20 mg tablet 40 mg (2 x 20 mg) PO DAILY #10 tabs 11/26/23 Allergies Allergy/AdvReac Type Severity Reaction Status Date / Time famotidine Allergy Unknown Unknown Verified 11/25/23 19:54 Review of Systems Review of Systems: Yes all other systems are reviewed and are negative PMFSH Social History Social History Smoked in Last 30 Days: No Use of substances other than those prescribed or required for medical reasons: No Advance Directives: No Advance Directives Information Provided: No Do you have a plan to hurt others: No Plan Patient : No Physical Exam ED Vital Signs: Vital Signs - 24 hr 11/25/23 19:51 11/25/23 21:42 11/26/23 00:15 Temperature 97.1 F 98 F 98.2 F Pulse Rate 80 88 86 Respiratory Rate 18 20 16 Blood Pressure 126/64 133/77 128/70 Pulse Oximetry 100 100 100 Oxygen Delivery Method Room Air Room Air Room Air 11/26/23 00:30 Temperature 98.2 F Pulse Rate 86 Respiratory Rate 16 Blood Pressure 128/70 Pulse Oximetry 100 Oxygen Delivery Method Room Air BMI result Body Mass Index 22.2 Appearance: Alert. Oriented X3. No acute distress. ENT: Pharynx normal. Oral Mucosa moist, lips and tongue normal Neck: Normal inspection. Neck supple. CVS: Normal heart rate and rhythm. Pulses normal. Respiratory: No respiratory distress. Equal air entry bilateral, no wheezing/rales/rhonchi Abdomen: Soft and nontender. Bowel sounds are present, Skin: Skin warm and dry. Normal skin color. Normal skin turgor. Extremities: No lower extremity edema. No calf tenderness Neuro: Oriented X 3. Course Course Course Narrative: RME performed by Rosa Emery PA-C. Patient is a 38 year old assigned female at presenting to the emergency department with a full body rash and possible allergic reaction. Patient states she has a full body rash and itching. Patient denies any new exposure to anything. Detailed physical exam and review of systems are deferred to the veterinary inspector. Patient placed back in the waiting room pending room availability. Medications Administered Discontinued Medications Generic Name Dose Route Start Last Admin Trade Name Freq PRN Reason Stop Dose Admin Dexamethasone 10 mg 11/25/23 22:59 11/25/23 23:50 Dexamethasone 2 Mg Tablet PO 11/25/23 23:00 10 mg ONCE ONE Administration Diphenhydramine HCl 50 mg 11/25/23 22:59 11/25/23 23:50 Diphenhydramine Hcl 25 Mg Capsule PO 11/25/23 23:00 50 mg ONCE ONE Administration Medical Decision Making Medical Decision Making [facility] Narrative: Patient with hives/urticaria from unknown agent feeling better after Decadron and Benadryl discharge patient home Discharge Plan Discharge Clinical Impression: Urticaria Patient Disposition: Home, Self-Care Instructions: Urticaria (ED) Additional Instructions: Take medication as prescribed and follow the PCP for further testing Prescriptions: New prednisone 20 mg tablet 40 mg PO DAILY Qty: 10 0RF diphenhydramine HCl [Benadryl] 25 mg capsule 50 mg PO Q6-8H PRN (Reason: allergic reaction) Qty: 30 0RF No Action cyclobenzaprine 10 mg tablet 10 mg PO Q8H Qty: 20 0RF ibuprofen 600 mg tablet 600 mg PO Q6H PRN (Reason: fever or pain) Qty: 30 0RF Interventions: ED Discharge Assessment Last Done: 11/26/23 00:30 Discharge Date/Time: 11/26/23 00:30 Print Language: Icelandic
[2023-11-25 21:42] VITALS: BP 133/77; PULSE 88; RESP 20; TEMP 36.6; O2SAT 100
[2023-11-25] MEDS: dexAMETHasone 2 MG TABLET 10 MG PO (23:50)
[2023-11-25] MEDS: diphenhydrAMINE HCL 25 MG CAPSULE 50 MG PO (23:50)
[2023-11-26 00:15] VITALS: BP 128/70; PULSE 86; RESP 16; TEMP 36.8; O2SAT 100
[2023-11-26 00:30] VITALS: BP 128/70; PULSE 86; RESP 16; TEMP 36.8; O2SAT 100
== END 2023-11-26 00:30 | disposition home or self-care (01) ==
PROVIDERS: Emergency Provider Internal Medicine
DX: L50.9 Urticaria, unspecified (principal); R21 Rash and other nonspecific skin eruption
CPT/HCPCS: 99283; 99284; J8540

== ENCOUNTER 2024-03-05 17:30 | Outpatient (REF) | payer MEDICAID, SELFPAY | END 2024-03-05 17:31 | disposition home or self-care (01) | LOC: HO.HHCLNP 17:30 | PROVIDERS: Visit Provider Nurse Practitioner Family | DX: R30.0 Dysuria (principal) | CPT/HCPCS: 87086 ==

== ENCOUNTER 2024-03-25 13:56 | Outpatient (AMB) | payer MEDICAID, SELFPAY ==
--- NOTE | 2024-03-25 14:00 | A.OFFVIS_ITS ---
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 Patient is not clear but says about 10 years ago she had an event in [place] where she had numbness and heaviness on the right side of the face and her tongue as well as right-sided for body. She was told that she had a TIA. However this is difficult to corroborate. She had a head CT last year which showed no acute intracranial pa thology. She says since then she has been having some cardiac symptoms. Mostly at nighttime she describes sharp pressure like stabbing symptoms in his chest which come and go. Symptoms last for 20 minutes to an hour. There is no clear pattern to it. On further asking if patient has palpitation she was not clear. She is awake historian. She does not get any symptoms with exertion. She is cu rrently not on any medication. She has no significant cardiovascular risk factors. She was told that she had cardiac arrhythmia although she has no details on it. She also has no details under family history although she says she has family history of cardiac issues. She denies any heart failure symptoms. Denies any lightheadedness, syncope. She also has constant headache almost every day where she feels squeezing sensation in her entire head and sometimes only on the right side of that with numbness. Review of Systems Const Denies chills, Denies daytime sleepiness, Denies fatigue, Denies fever(s), Denies frequent falls, Denies poor appetite, Denies snoring, Denies stops breathing during sleep, Denies weakness, Denies weight gain and Denies weight loss Eyes Denies loss of vision ENT Denies dizziness and Denies hearing loss Card Denies chest pain, Denies claudication, Denies leg edema, Denies lightheadedness, Denies palpitations, Denies dyspnea, Denies dyspnea on exertion and Denies orthopnea Resp Denies cough, Denies excessive phlegm production, Denies dyspnea, Denies dyspnea on exertion, Denies snoring and Denies wheezing GI Denies abdominal pain, Denies hematochezia, Denies change in bowel habits, Denies nausea and Denies vomiting Denies urinary frequency and Denies dysuria Musc Denies arthralgias, Denies muscle weakness, Denies numbness and Denies other (frequent falls) Skin/Breast Denies nail changes and Denies rash Neuro Denies Abnormal speech present, Denies dizziness, Denies frequent falls, Denies loss of vision, Denies memory loss, Denies numbness and Denies weakness Psych Denies depression and Denies memory loss Endo Denies fatigue and Denies palpitations Lobito/Lymph Reports easy bruising and Reports other (anemia) Aller/Immun Denies wheezing Physical Exam Vital Signs: Last Vital Signs Pulse 65 03/25/24 14:04 BP 120/74 03/25/24 14:04 BMI result Body Mass Index 35.1 Const General: cooperative, comfortable, no acute distress, alert and awake Nutritional Appearance: obese Orientation/consciousness: patient oriented x3 Limitations: no limitations HEENT Head: Yes normocephalic and Yes atraumatic Neck Neck: Yes trachea midline, Yes supple and Yes no JVD Resp Effort & Inspection: normal respiratory effort Auscultation: clear to auscultation bilaterally Cardio Jugular venous distension: no JVD Palpation: normal PMI Rate: regular rate Rhythm: regular rhythm Heart sounds: S1 normal heart sound present, S2 normal heart sound present, no click, no gallops, no murmurs and no rubs GI Inspection: Yes obesity Auscultation: normal bowel sounds Skin General skin exam: no rashes or lesions noted Neuro General: patient oriented x3 and no focal motor deficits Speech: No Abnormal speech present Extrem General: Yes no clubbing, cyanosis or edema Office Procedures EKG Details: EKG shows normal sinus rhythm with poor R-wave progression most likely due to lead placement and body habitus [id number], Complete Assessment & Plan Assessment & Plan (1) Atypical chest pain: Code(s): R07.89 - Other chest pain Plan: Atypical chest pain which are very vague symptoms and patient was very vague historian. Patient symptoms are not suggestive of any cardiac issues. Cardiac arrhythmias can not be entirely ruled out. I would suggest her to undergo a 30 day event monitor to evaluate for any arrhythmias. Possible that she might have extra systoles such as PACs and PVCs giving her symptoms. Unlikely to have myocardial ischemia with no risk factors in her age. I will also obtain echocardiogram to assess for LV structure and regional wall motion abnormality given her poor R-wave progression which most likely is pseudo infarct pattern related to body habitus. Further treatment based on the finding of test results. Will follow up in the clinic if need be. Thank you for allowing me to partake in his care Medications: Discontinued cyclobenzaprine Discontinued Reason: Patient no longer taking 10 mg PO Q8H 20 tabs 0RF ibuprofen Discontinued Reason: Patient no longer taking 600 mg PO Q6H PRN 30 tabs 0RF fever or pain diphenhydramine HCl (Benadryl) Discontinued Reason: Patient no longer taking 50 mg (2 x 25 mg) PO Q6-8H PRN 30 caps 0RF allergic reaction prednisone Discontinued Reason: Patient no longer taking 40 mg (2 x 20 mg) PO DAILY 10 tabs 0RF Coding Level of Care Code New Pt Level 3 (99926) Diagnoses Atypical chest pain R07.89 CPT Codes EKG - CPT: 29090-[id number], Complete ([id number])
[2024-03-25 14:04] VITALS: BP 120/74; PULSE 65; BMI 35.1
== END 2024-03-25 14:36 | disposition home or self-care (01) ==
PROVIDERS: PCP Nurse Practitioner Family; Visit Provider Internal Medicine Cardiovascular Disease
DX: R07.89 Other chest pain (principal)
CPT/HCPCS: 93010; 99203

== ENCOUNTER → 2024-03-25 13:56 | Outpatient (BNVA) | payer MEDICAID, SELFPAY | PROVIDERS: PCP Nurse Practitioner Family; Visit Provider Internal Medicine Cardiovascular Disease | DX: R07.89 Other chest pain (principal); R94.31 Abnormal electrocardiogram [ECG] [EKG] | CPT/HCPCS: 93005; 99202 ==

== ENCOUNTER → 2024-04-16 12:43 | Outpatient (REF) | payer MEDICAID, SELFPAY ==
--- NOTE | 2024-04-16 12:48 | HM_ITS ---
* Total procedure length 30 days. Wear time 2.8 days. * Underlying rhythm is sinus with an average rate of 77/Min. * Supraventricular ectopy noted with a burden of 1%. * No significant arrhythmias. * No symptoms mentioned in diary. MTDD
--- NOTE | 2024-04-16 12:48 | CA_ITS ---
Transthoracic Echocardiogram Patient (Last, First, Middle): Haily Caal M Gender: Female Date of : 1985 Age: 39 Procedure Date: 04/16/2024 Procedure Type: Transthoracic Echocardiogram Location: OP Height: 154.94 cm Weight: 83.46 kg BSA: 1.82 m2 Heart Rate: bpm BP: 100 / 64 mmHg Machine Cloth Measurer: TO Referring MD: Burak Guardado MD Symptoms: R07.89 - Other chest pain Study Quality: Technically Difficult/Contrast ECG Rhythm: Sinus Conclusions: - The left ventricular systolic function is normal. The calculated ejection fraction is 65% by biplane method. - No obvious valvular pathology seen on this study. Findings Procedure Information Contrast agent, definity, is being given per protocol without apparent complications. Left Ventricle Normal left ventricular cavity size. There is normal left ventricular wall thickness. The left ventricular systolic function is normal. The calculated ejection fraction is 65% by biplane method. There is no evidence of regional wall motion abnormalities. Diastolic function is normal for age. Right Ventricle Normal right ventricular cavity size and systolic function. Atria Both atria are normal in size. Aortic Valve There is a normal trileaflet aortic valve. There is no aortic valve stenosis. There is no aortic valve regurgitation. Mitral Valve The mitral valve appears normal. There is no mitral valve regurgitation. There is no mitral valve stenosis. Pulmonic Valve The pulmonic valve is likely normal. Tricuspid Valve There is trace tricuspid valve regurgitation. There is no evidence of pulmonary hypertension. Great Vessels The asc aorta is normal in size. Venous The inferior vena cava is normal in size and collapses greater than 50% with inspiration. Pericardium/Pleural There is no evidence of pericardial effusion. Prior Study Comparison No prior study available for comparison. Recommendations, Care & Conclusions No obvious valvular pathology seen on this study. Measurements 2D Linear Measurements IVSd: 0.74 0.6-0.9/0.6-1.0 cm LVIDd: 4.64 3.9-5.3/4.2-5.9 cm LVIDd Index: 2.55 2.4-3.2/2.2-3.1 cm/m2 LVIDs: 2.83 2.0-3.6 cm LVPWd: 0.65 0.7-1.1 cm LA Diam: 3.20 2.7-3.8/3.0-4.0 cm LAIDs Index: 1.76 1.5-2.3 cm/m2 LV Mass: 124.02 67-162/88-224 g LV Mass Index: 68.14 43-95/49-115 g/m2 LVOT Diam: 1.90 3.0+(-)1.3 cm 2D Systolic Function EF 4C: 64.30 >55% EF 2C: 65.50 >55% EF BiP: 64.60 >55% Mitral Valve MV Pk E: 0.99 MV PK A: 0.51 MV Decel Time: 237.00 E/A: 1.90 E'Lateral: 12.00 E'Medial: 9.90 E/E' Med: 9.90 E/E' Lat: 8.20 PHT: 69.00 MVA PHT: 3.19 Decel [place]: 4.16 Aortic Valve AoV Pk Farhat: 1.59 AoV Mn Farhat: 1.06 AoV VTI: 0.33 AoV Pk Grad: 10.00 Aov Mn Grad: 5.00 JOSE Cont.VTI: 2.16 LVOT LVOT Pk Farhat: 1.14 LVOT Mn Farhat: 0.74 LVOT VTI: 0.25 LVOT Pk Grad: 5.00 LVOT Mn Grad: 3.00 LVOT Diam: 1.90 LVOT Area: 2.84 Diastolic Function MV Pk E: 0.99 MV Pk A: 0.51 E/A: 1.90 E'Medial: 9.90 E/E' Med: 9.90 E' Laterial: 12.00 E/E' Lat: 8.20 Right Ventricle TAPSE (mm): 23.00 TVS' Farhat: 12.50 Tricuspid Valve TR Pk Farhat: 2.02 TR Pk Grad: 16.00 RA Press: 3.00 RVSP: 19.00 Great Vessels Aorta Sinus of Valsalva: 2.86 2.0-3.5 cm Ao Asc: 2.60 2.1-3.4 cm Updated in Other Vendor System with Status of Final Scott Ogden MD electronically signed on 04/18/2024 9:31:05 AM with status of Final
== END ==
LOC: HO.CARD 12:43
PROVIDERS: PCP Nurse Practitioner Family; Visit Provider Internal Medicine Cardiovascular Disease
DX: R07.89 Other chest pain (principal)
CPT/HCPCS: 93270; 93306; Q9957

== ENCOUNTER → 2024-04-16 12:48 | Outpatient (BNV) | payer MEDICAID, SELFPAY | PROVIDERS: PCP Nurse Practitioner Family; Visit Provider Internal Medicine | DX: I47.10 Supraventricular tachycardia, unspecified (principal) | CPT/HCPCS: 93272; 93306 ==

== ENCOUNTER 2024-05-13 16:58 | Emergency (ER) | payer MEDICAID, SELFPAY ==
--- NOTE | ~2024-05-13 | XR_ITS ---
EXAMINATION: XR CHEST CLINICAL INFORMATION: Chest pain and cough COMPARISON: None available. TECHNIQUE: 2 views of the chest were obtained. FINDINGS: No significant abnormality is noted involving the heart, lungs, mediastinum, bony thorax or soft tissues. XR/XR chest 2V IMPRESSION: Unremarkable examination. Electronically signed by: Junito Bal MD 05/13/2024 06:14 PM [facility]
[2024-05-13 17:07] VITALS: BP 128/53; PULSE 84; RESP 20; TEMP 37.4; O2SAT 100; BMI 34.0
--- NOTE | 2024-05-13 17:07 | ED.URI ---
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 She states the nebs help but don't last. No one else is sick at home. Able to eat and drink MD elicited complaint: fever, cough and rhinorrhea Pertinent past history: asthma Onset (ago): day(s) (2) Consistency: constant Severity: mild Description of mucous: clear Able to tolerate fluids by mouth: Yes Exacerbating factors: other (coughing) Relieving factors: nothing Associated symptoms: chills, myalgias, headache, rhinorrhea, nasal congestion, cough and shortness of breath Treatments prior to arrival: other Related Data Previous Rx's ?Medication ?Instructions ?Recorded albuterol sulfate 2.5 mg/3 mL 2.5 mg (3 mL) inhalation Q4-6H PRN 05/13/24 (0.083 %) solution for nebulization bronchospasm #75 mL azithromycin 250 mg tablet 250 mg PO DAILY 4 days #4 tabs 05/13/24 Allergies Allergy/AdvReac Type Severity Reaction Status Date / Time famotidine Allergy Unknown Unknown Verified 05/13/24 17:09 Review of Systems Review of Systems: Constitutional : No Fever, pos Chills ENT/Mouth : No Hoarseness, No sore throat, pos Rhinorrhea Eyes: No Redness, No Discharge, No Vision Changes Cardiovascular : No Chest Pain, positive SOB, No Edema Respiratory : positive Cough, pos Sputum, positive Wheezing, Gastrointestinal : No Nausea, No Vomiting, No Diarrhea, No abdominal Pain Genitourinary : No Dysuria, No Hematuria Musculoskeletal : No joint pain, No Myalgias Skin : No rash Neuro : No Weakness, No Numbness, No Headache All other systems reviewed and are negative [facility] Past Medical History Attestation statement: The following information was validated with the patient. Source: old records reviewed Medical History Asthma Social History Social History (Updated 05/13/24 @ 18:44 by Lenora Hampton DO) Patient Tobacco Use Status: Never used Tobacco Physical Exam Vital Signs: Vital Signs: Last Vital Signs Temp 99.4 F 05/13/24 17:07 Pulse 84 05/13/24 17:07 Resp 20 05/13/24 17:07 BP 128/53 L 05/13/24 17:07 Pulse Ox 100 05/13/24 17:07 O2 Del Method Room Air 05/13/24 17:07 BMI result Body Mass Index 34.0 Appearance: Alert. Oriented X3. No acute distress. Eyes: Pupils equal, round and reactive to light. ENT: Pharynx normal. Neck: Normal inspection. Neck supple. CVS: Normal heart rate and rhythm. Pulses normal. Respiratory: No respiratory distress. Breath sounds mild ant rhonchi noted. Abdomen: Soft and nontender. Skin: Skin warm and dry. Normal skin color. Normal skin turgor. Extremities: No lower extremity edema. No calf ttp Neuro: Oriented X 3. No motor deficit. No sensory deficit. Course Course Course Narrative: This is a Rapid Medical Exam performed in triage by Felicitas Nails PA-C. Full HPI, ROS and PE to be performed by primary ED provider. 39yo F w/PMHx presenting to the ED c/o cough, congestion, BANDA, wheezing, SOB, back pain x yesterday. Admits hurts when she breaths PE: lungs CTA, talking complete sentences Plan: viral testing, CXR Medical Decision Making Medical Decision Making [facility] Narrative: 39 yo female with asthma presents with URI symptoms she has no risk factors for VTE, she is not toxic at this time no hypoxia - will obtain CXR and viral swab - if negative treat as presumed bronchitis - dexamethasone ordered and zpak. Differential Diagnosis Differential Diagnoses: The differential diagnosis associated with the presentation includes bronchitis, viral syndrome, pneumonia Admission/Observation Consideration of admission/observation: Escalation of care including admission/observation considered not toxic, tolerating PO, normal O2 can trial at home Lab Data [facility] Lab Attestation statement: I reviewed the patient's lab results. Labs: Lab Results 05/13/24 Range/Units 17:31 Influenza Type A (PCR) NEGATIVE (Negative) Influenza Type B (PCR) NEGATIVE (Negative) RSV RNA Qual (PCR) NEGATIVE (Negative) SARS-CoV-2 RNA (RT-PCR) NEGATIVE (Negative) Independent Interpretation I performed an independent interpretation of an: Plain X-Ray (normal ) Radiology Impression Discussion of test interpretation with radiology: I have reviewed the radiologist's reading. External Record Review External record reviewed: Outpatient record Prescription Management I considered prescription management with: Antibiotic and Other Discharge Plan Discharge Clinical Impression: Bronchitis Patient Disposition: Home, Self-Care Instructions: Acute Bronchitis (ED) Additional Instructions: negative for flu, covid, rsv chest xray - negative given steroid in the ED continue to take nebulizers next dose of antibiotic is tomorrow Prescriptions: New albuterol sulfate 2.5 mg /3 mL (0.083 %) solution for nebulization 2.5 mg inhalation Q4-6H PRN (Reason: bronchospasm) Qty: 75 0RF azithromycin 250 mg tablet 250 mg PO DAILY 4 Days Qty: 4 0RF Rx Instructions: start on day 2 of therapy Stand Alone Forms: Work/School Release Print Language: Armenian
[2024-05-13 18:22] LABS: Influenza A PCR NEGATIVE (Negative); Influenza B PCR NEGATIVE (Negative); Resp Syncy Virus RNA Qual PCR NEGATIVE (Negative); SARS COV2 PCR INHOUSE NEGATIVE (Negative)
[2024-05-13 18:45] VITALS: BP 126/70; PULSE 66; RESP 19; TEMP 36.8; O2SAT 98
[2024-05-13] MEDS: dexAMETHasone 2 MG TABLET 10 MG PO (18:57)
[2024-05-13] MEDS: Azithromycin 500 MG TABLET PO (18:58)
[2024-05-13 18:59] VITALS: BP 126/70; PULSE 66; RESP 19; TEMP 36.8; O2SAT 98
== END 2024-05-13 19:00 | disposition home or self-care (01) ==
LOC: HO.ED 18:58
PROVIDERS: Physician Assistant; Emergency Provider Emergency Medicine; PCP Nurse Practitioner Family
DX: J40 Bronchitis, not specified as acute or chronic (principal); J02.9 Acute pharyngitis, unspecified; R05.9 Cough, unspecified; R50.9 Fever, unspecified; J34.89 Other specified disorders of nose and nasal sinuses; Z03.818 Encounter for observation for suspected exposure to other biological agents ruled out
CPT/HCPCS: 0241U; 71046; 99282; 99283; J8540

== ENCOUNTER → 2024-07-05 16:02 | Outpatient (BNV) | payer MEDICAID, SELFPAY | PROVIDERS: PCP Nurse Practitioner Family; Visit Provider Internal Medicine | DX: R07.9 Chest pain, unspecified (principal) | CPT/HCPCS: 93010 ==

== ENCOUNTER → 2024-07-05 16:37 | Outpatient (BNV) | payer MEDICAID, SELFPAY | PROVIDERS: PCP Nurse Practitioner Family; Visit Provider Radiology Diagnostic Radiology | DX: J18.9 Pneumonia, unspecified organism (principal) | CPT/HCPCS: 71045 ==

== ENCOUNTER 2024-08-21 10:26 | Emergency (ER) | payer MEDICAID, SELFPAY ==
--- NOTE | ~2024-08-21 | XR_ITS ---
CLINICAL HISTORY: fall 2 view right femur Comparison: CR - XR HIP RT MIN 2V - 08/21/24 11:07 EST Findings: No fractures or dislocations. No knee effusion. No significant arthritic change. No radiopaque foreign body. IMPRESSION: 1. Normal right femur This document has been electronically signed by: Jeff Acharya MD on 08/21/2024 12:11:04
--- NOTE | ~2024-08-21 | XR_ITS ---
CLINICAL HISTORY: fall 3 view, pelvis and right hip Comparison: None Findings: No acute fracture or dislocation. No significant arthritic change. Transitional lumbosacral vertebral level with right-sided pseudoarthrosis. Soft tissues intact. IMPRESSION: No acute findings. This document has been electronically signed by: Jeff Acharya MD on 08/21/2024 12:10:35
--- NOTE | ~2024-08-21 | CT_ITS ---
CLINICAL HISTORY: fall onto back, low back coccyx pain, r o fx CT lumbar spine without contrast Comparison: None Findings: Vertebral alignment is within normal limits. No acute fractures or dislocations. No significant degenerative change. Visualized abdominal contents unremarkable. IMPRESSION: No acute findings. This document has been electronically signed by: Noe Tavarez MD on 08/21/2024 16:28:56
--- NOTE | ~2024-08-21 | XR_ITS ---
CLINICAL HISTORY: knee inury, numbness to R lower leg 4 view right knee Comparison: None Findings: No fractures or dislocations. No significant loss of joint space, osteophytes, or erosions. No joint effusion. No radiopaque foreign body. IMPRESSION: 1. No acute findings. This document has been electronically signed by: Noe Tavarez MD on 08/21/2024 14:43:56
[2024-08-21 10:47] VITALS: BP 132/52; PULSE 83; RESP 18; TEMP 36.7; O2SAT 99; BMI 34.1
--- NOTE | 2024-08-21 13:14 | ED.LOWEXIN ---
HPI - Extremity Injury (Lower) General Chief Complaint: Extremity Injury, Lower Stated Complaint: R side & leg pain Time Seen by Provider: 08/21/24 13:14 Source: patient, RN notes reviewed and old records reviewed Mode of arrival: ambulatory Limitations: no limitations History of Present Illness ED Provider: CANDICE FAYE PA-C HPI Narrative: 39 year old Bahraini speaking female with no significant pmhx presents to the ED today for evaluation of tail bone pain x 1.5 weeks s/p slip and fall. Reports slipping on ice and falling backwards, landing directly on her tailbone. She was able to stand and ambulate after fall. Denies head strike or LOC. Reports continued pain to her tailbone post fall. Additionally endorses striking her RLE on a table at work yesterday. Since this time reports numbness to right lower leg. Reports taking naproxen at home with some relief. Last dose yesterday. Denies any difficulty ambulating. Denies bowel or bladder incontinence or retention, saddle anesthesia, tingling or weakness of the lower extremities, dysuria, hematuria. Related Data Previous Rx's ?Medication ?Instructions ?Recorded albuterol sulfate 2.5 mg/3 mL 2.5 mg (3 mL) inhalation Q4-6H PRN 05/13/24 (0.083 %) solution for nebulization bronchospasm #75 mL azithromycin 250 mg tablet 250 mg PO DAILY 4 days #4 tabs 05/13/24 lidocaine 5 % topical patch 1 patch topical DAILY #15 ea 08/21/24 (Lidoderm) Allergies Allergy/AdvReac Type Severity Reaction Status Date / Time famotidine Allergy Unknown Unknown Verified 08/21/24 10:47 Review of Systems Review of Systems: Constitutional: No fever, chills, fatigue, night sweats, weight changes ENT/Mouth: No ear pain, hearing loss, nasal congestion, sinus pain, rhinorrhea, sore throat Eyes: No eye pain, swelling, redness, vision changes, discharge Cardio: No chest pain, palpitations, ALEGRIA, orthopnea, peripheral edema Pulm: No SOB, cough, sputum, wheezing, dyspnea, hemoptysis GI: No nausea, vomiting, hematemesis, abdominal pain, diarrhea, constipation, hematochezia, melena : No irregular bleeding, dysuria, frequency, urgency, hesitancy, hematuria, flank pain, urinary flow changes, urinary incontinence or retention MSK: No neck pain, joint pain, myalgias, +back pain Skin: No lesions, rashes Neuro: No weakness, numbness, paresthesias, LOC, dizziness, headache Psych: No anxiety/panic, depression, SI/HI, AH/VH All other systems reviewed and are negative. [facility] Past Medical History Attestation statement: The following information was validated with the patient. Source: old records reviewed and nursing notes reviewed Medical History Asthma Social History Social History Patient Tobacco Use Status: Never used Tobacco Physical Exam Vital Signs: Vital Signs: Last Vital Signs Temp 98.1 F 08/21/24 17:41 Pulse 83 08/21/24 17:41 Resp 18 08/21/24 17:41 BP 132/52 L 08/21/24 17:41 Pulse Ox 99 08/21/24 17:41 O2 Del Method Room Air 08/21/24 17:41 BMI result Body Mass Index 34.1 vital signs stable, afebrile General: Well appearing, in no acute distress. Skin: Warm, dry, intact. No rashes or lesions. Head: Normocephalic, atraumatic. EENT: Hearing is intact b/l. Conjunctiva clear. PERRLA. EOM intact. Moist mucous membranes.? Cardiac: Chest wall symmetric. RRR Lungs: Normal respiratory effort without accessory muscle use. CTA bilaterally Back: no midline spinous tenderness or step-off deformity. No paraspinal muscle tenderness to palpation. Ext: upper and lower extremities atraumatic, without tenderness, deformity, swelling or erythema. Full ROM throughout. Sensation intact throughout. Neuro: AOx3. Normal speech. Strength 5/5 intact throughout. No saddle anesthesia. NV intact distally. Ambulating with steady gait. Course Course Course Narrative: xrays of pelvis/ right femur/ right knee are unremarkable. ct lumbar spine without vertebral fracture, disc subluxation or spinal narrowing. on re-evaluation, she reports improvement in pain with toradol/ lido patches. Patient has remained stable throughout ED visit today. Discussed worrisome signs and symptoms and when to return to the ED. All questions answered at this time. Patient is agreeable with disposition and stable for discharge. Medications Administered Discontinued Medications Generic Name Dose Route Start Last Admin Trade Name Jettq PRN Reason Stop Dose Admin Ketorolac Tromethamine 30 mg 08/21/24 13:57 08/21/24 14:56 Ketorolac Tromethamine 30 Mg/Ml Vial IM 08/21/24 13:58 30 mg ONCE ONE Administration Lidocaine 1 patch 08/21/24 13:57 08/21/24 14:56 Lidocaine 4 % Patch Adh..Patch TRANSDERMA 08/21/24 13:58 1 patch ONCE ONE Administration Protocol Medical Decision Making Medical Decision Making [facility] Narrative: 39 year old Bahraini speaking female with no significant pmhx presents to the ED today for evaluation of tail bone pain x 1.5 weeks s/p slip and fall. vital signs stable. Afebrile. she is nontoxic appearing and in NAD. on exam there is no midline spinous tenderness or step off. no midline paraspinal muscle tenderness. Differential diagnosis includes contusion, msk sprain/ strain, muscle spasm, fracture. unlikely nv compromise, threat to limb, compartment syndrome, cauda equina, gullaine barre, cord compression, epidural abscess. Plan for imaging, pain control, and re-evaluation. Differential Diagnosis Differential Diagnoses: The differential diagnosis associated with the presentation includes as above. Admission/Observation Not indicated. Lab Data [facility] Lab Attestation statement: I reviewed the patient's lab results. as above. Labs: Lab Results 08/21/24 Range/Units 15:13 Beta HCG, Quant < 2 mIU/mL Independent Interpretation I performed an independent interpretation of an: Plain X-Ray and CT Scan Interpretation: CT lumbar spine without acute fracture or subluxation XR pelvis/ right femur/ right knee without acute fracture Radiology Impression Discussion of test interpretation with radiology: I have reviewed the radiologist's reading. Radiologist Impression: Procedure(s): CT lumbar spine wo IV con Accession Number(s): [id number] cc: Yvonne Roldan FURRIER APPRENTICE; Candice Faye~ Report Number: [id number]: Total DLP = 585.00 mGy-cm CLINICAL HISTORY: fall onto back, low back coccyx pain, r o fx CT lumbar spine without contrast Comparison: None Findings: Vertebral alignment is within normal limits. No acute fractures or dislocations. No significant degenerative change. Visualized abdominal contents unremarkable. IMPRESSION: No acute findings. This document has been electronically signed by: Noe Tavarez MD on 08/21/2024 16:28:56 Procedure(s): XR knee RT 4V Accession Number(s): [id number] cc: Yvonne Roldan FURRIER APPRENTICE; Candice Faye PA~ CLINICAL HISTORY: knee inury, numbness to R lower leg 4 view right knee Comparison: None Findings: No fractures or dislocations. No significant loss of joint space, osteophytes, or erosions. No joint effusion. No radiopaque foreign body. IMPRESSION: 1. No acute findings. This document has been electronically signed by: Noe Tavarez MD on 08/21/2024 14:43:56 Procedure(s): XR femur RT 2V Accession Number(s): [id number] cc: Generic ED Physician; Physician,Unknown ~ CLINICAL HISTORY: fall 2 view right femur Comparison: CR - XR HIP RT MIN 2V - 08/21/24 11:07 EST Findings: No fractures or dislocations. No knee effusion. No significant arthritic change. No radiopaque foreign body. IMPRESSION: 1. Normal right femur This document has been electronically signed by: Jeff Acharya MD on 08/21/2024 12:11:04 Procedure(s): XR hip RT min 2V Accession Number(s): [id number] cc: Generic ED Physician; Physician,Unknown ~ CLINICAL HISTORY: fall 3 view, pelvis and right hip Comparison: None Findings: No acute fracture or dislocation. No significant arthritic change. Transitional lumbosacral vertebral level with right-sided pseudoarthrosis. Soft tissues intact. IMPRESSION: No acute findings. This document has been electronically signed by: Jeff Acharya MD on 08/21/2024 12:10:35 External Record Review External record reviewed: Inpatient record Prescription Management I considered prescription management with: Pain Medication Social Determinants Patient?s care significantly limited by Social Determinants of Health including: Other Social Determinant of Health Critical Care Time Critical Care Time Critical Care Time: No Discharge Plan Discharge Clinical Impression: Low back pain Patient Disposition: Home, Self-Care Instructions: Back Pain (ED) Additional Instructions: You were evaluated in the Emergency Department today for your lower back/ tail bone pain. Your evaluation did not show signs of medical conditions requiring emergent intervention at this time. CT scans of low back/ tail bone are normal. The xrays of your right thigh/ knee are normal. Given your numbness, you may have hit a nerve in your lower leg when you bumped your leg yesterday. I am not concerned about an acute spinal cord injury. Avoid bending, lifting, or twisting. Use ice several times per day for 20 minutes at a time for the next 48 hours and then change to heat. I recommend you take 600mg ibuprofen every 6 hours or tylenol 650mg every 6 hours as needed for pain. If needed, you can alternate these medications so that you take one medication every 3 hours. For example, at noon take ibuprofen, then at 3pm take tylenol, then at 6pm take ibuprofen. Lidoderm patches are numbing patches. Apply to painful areas. Please schedule an appointment for follow-up with your primary care provider this week for further evaluation of your symptoms. Return to the Emergency Department if you experience worsening back pain, difficulty walking, fevers, numbness, tingling, incontinence, or any other concerning symptoms. In the case of an emergency call 911. Prescriptions: New lidocaine [Lidoderm] 5 % adhesive patch,medicated 1 patch topical DAILY Qty: 15 0RF Rx Instructions: leave on most painful area for up to 12 hrs No Action albuterol sulfate 2.5 mg /3 mL (0.083 %) solution for nebulization 2.5 mg inhalation Q4-6H PRN (Reason: bronchospasm) Qty: 75 0RF azithromycin 250 mg tablet 250 mg PO DAILY 4 Days Qty: 4 0RF Rx Instructions: start on day 2 of therapy Referrals: Yvonne Roldan FURRIER APPRENTICE [Primary Care Provider] - Interventions: ED Discharge Assessment Last Done: 08/21/24 17:41 Discharge Date/Time: 08/21/24 17:42 Print Language: Bahraini
[2024-08-21] MEDS: Ketorolac Tromethamine 30 MG/ML VIAL IM (14:56)
[2024-08-21] MEDS: Lidocaine 4 % Patch ADH..PATCH 1 PATCH TRANSDERMA (14:56)
[2024-08-21 15:38] LABS: HCG Quantitative < 2 mIU/mL
[2024-08-21 17:41] VITALS: BP 132/52; PULSE 83; RESP 18; TEMP 36.7; O2SAT 99
== END 2024-08-21 17:42 | disposition home or self-care (01) ==
PROVIDERS: Physician Assistant Medical; Emergency Provider Emergency Medicine; PCP Nurse Practitioner Family
DX: M54.50 Low back pain, unspecified (principal); M79.651 Pain in right thigh; M25.561 Pain in right knee; Z91.81 History of falling
CPT/HCPCS: 36415; 72131; 73502; 73552; 73564; 84702; 96372; 99284; J1885

== ENCOUNTER → 2024-08-21 11:06 | Outpatient (BNV) | payer MEDICAID, SELFPAY | PROVIDERS: Visit Provider Radiology Diagnostic Radiology | DX: M54.50 Low back pain, unspecified (principal); M79.604 Pain in right leg | CPT/HCPCS: 72131; 73502; 73552; 73564 ==

== ENCOUNTER 2024-08-26 11:22 | Outpatient (REF) | payer MEDICAID, SELFPAY ==
[2024-08-26 11:43] LABS: MANUAL DIFF FLAG NO
[2024-08-26 12:26] LABS: Basophils Absolute Auto 0.1 X10*3/uL (0.0-0.2); Basophils Percent Auto 0.5 % (0-2); Eosinophils Absolute Auto 0.3 X10*3/uL (0.0-0.4); Eosinophils Percent Auto 2.7 % (0-4); Hematocrit 36.6 % (37.0-47.0); Hemoglobin 11.5 g/dl (12.0-16.0); Imm Gran Abs Auto 0.04 X10*3/uL (0.00-0.03); Imm Gran Pct Auto 0.3 % (0.0-0.4); Lymphocytes Absolute Auto 2.9 X10*3/uL (1.2-4.9); Mean Corpuscular HGB Conc 31.4 g/dl (31.0-35.0); Mean Corpuscular Hemoglobin 26.1 pg (27.0-33.0); Mean Corpuscular Volume 83.2 fL (80.0-98.0); Mean Platelet Volume 11.2 fL (9.4-12.3); Monocytes Absolute Auto 0.5 X10*3/uL (0.1-1.2); Monocytes Percent Auto 4.2 % (2-11); Neutrophils Absolute Auto 8.3 x10*3/uL (2.0-8.3); Neutrophils Percent Auto 68.3 % (45-73); Platelet Count 350 X10*3/uL (160-400); Red Cell Distribution Width 14.3 % (11.0-16.0); White Blood Count 12.2 X10*3/uL (4.8-10.8)
[2024-08-26 12:58] LABS: Anion Gap 13 (12-20); Blood Urea Nitrogen 12 mg/dL (9-16); Calcium 8.9 mg/dL (8.4-10.2); Carbon Dioxide 25 mmol/L (22-29); Chloride 102 mmol/L (96-108); Estimated Glomerular Filt Rate > 60; Potassium 3.7 mmol/L (3.3-5.1); Sodium 136 mmol/L (135-145)
[2024-08-26 13:12] LABS: Total Protein Urine Random < 7 mg/dL (<12)
--- OUTSIDE RECORDS SUMMARY | 2024-08-26 13:49 | XMS_ITS | Encounter Summary ---
Author Organization [facility] Address [address] [facility] [address] [place] [address] Phone Care Team Providers Care Nps Name Role Phone Deo Gustafson MD Primary Care Provider [phone] Encounter Details Date Type Department Care Team (Late st Contact Info) Description 08/16/2024 Telephone [facility] [address] [place] [address] Eda Short [address] [place] [phone] Social History Tobacco Use Types Packs/Day Years Used Date Smoking Tobacco: Never Assessed Comments Unknown Sex and Gender Information Value Date Recorded Sex Assigned at Not on file Legal Sex Female 1:24 PM EST Gender Identity Not on file Sexual Orientation Not on file documented as of this encounter Miscellaneous Notes * Telephone Encounter - Eda Short - 08/16/2024 8:23 AM EST LVM for pt to return the call to 08/16 appt to 08/17 @ 3pm due to inclement weather. documented in this encounter Plan of Treatment Upcoming Encounters Date Type Department Care Team (Late st Contact Info) Description 08/08/2025 1:30 PM EST Office Visit [facility] [address] [place] [address] Blnaco Polk MD [address] [place] [address] [place] [address] documented as of this encounter Visit Diagnoses Not on filedocumented in this encounter Care Teams Nps Relationship Specialty Start Date End Date Deo Gustafson MD [address] [place] [phone] PCP - General Emergency Medicine 05/14/23 documented as of this encounter
--- OUTSIDE RECORDS SUMMARY | 2024-08-26 13:49 | XMS_ITS | Encounter Summary ---
Demographics Address [address] [facility] [address] [place] [address] Home Phone Mobile Phone Preferred Language es Marital Status Single Congregation Affiliation Unknown Race Unknown Ethnic Group Nicaraguan Author Organization [employer] Address [address] [facility] [address] [place] [address] Care Team Providers Care Repair Department Manager Name Role Phone Yvonne Roldan NP Primary Care Provider [phone] Encounter Details Date Type Department Care Team (Late st Contact Info) Description 05/29/2023 Orders Only [facility] [address] [place], [place] [phone] Deo Gustafson MD [address] [place], [place] [phone] Social History Tobacco Use Types Packs/Day Years Used Date Smoking Tobacco: Never Smokeless Tobacco: Never Alcohol Use Standard Drinks/Week Comments Never 0 (1 standard drink = 0.6 oz pur e alcohol) Comments Unknown Sex and Gender Information Value Date Recorded Sex Assigned at Female 08/20/2022 12:51 PM EST Legal Sex Female 12:46 PM EST Gender Identity Female 08/20/2022 12:51 PM EST Sexual Orientation Straight 08/20/2022 12 :53 PM EST documented as of this encounter Plan of Treatment Not on file documented as of this encounter Visit Diagnoses Not on filedocumented in this encounter Care Teams Repair Department Manager Relationship Specialty Start Date End Date Yvonne Roldan NP [address] [place] [phone] PCP - General Family Medicine 09/10/23 Mei loja Power LineworkerRaised Printer 07/14/24 documented as of this encounter
--- OUTSIDE RECORDS SUMMARY | 2024-08-26 13:49 | XMS_ITS | Encounter Summary ---
Author Organization [facility] Address [address] [address] Phone Care Team Providers Care Delicatessen Department Manager Name Role Phone Deo Gustafson MD Primary Care Provider [phone] Encounter Details Date Type Department Care Team (Late st Contact Info) Description 05/15/2023 Documentation Only [facility] [address] [place] [address] Deo Gustafson MD [address] [place] [phone] Social History Tobacco Use Types Packs/Day Years Used Date Smoking Tobacco: Never Assessed Comments Unknown Sex and Gender Information Value Date Recorded Sex Assigned at Not on file Legal Sex Female 1:24 PM EST Gender Identity Not on file Sexual Orientation Not on file documented as of this encounter Plan of Treatment Upcoming Encounters Date Type Department Care Team (Late st Contact Info) Description 08/08/2025 1:30 PM EST Office [facility] [address] [place] [address] Blanco Polk MD [address] [place] [address] [place] [address] documented as of this encounter Visit Diagnoses Not on filedocumented in this encounter Care Teams Delicatessen Department Manager Relationship Specialty Start Date End Date Deo Gustafson MD [address] [place] [phone] PCP - General Emergency Medicine 05/14/23 documented as of this encounter
--- OUTSIDE RECORDS SUMMARY | 2024-08-26 13:49 | XMS_ITS | Encounter Summary ---
Author Organization [facility] [place], Address [facility] [address] [place] [address] Phone Care Team Providers Care Sales Correspondent Name Role Phone Deo Gustafson MD Primary Care Provider [phone] Encounter Details Date Type Department Care Team (Late st Contact Info) Description 08/17/2024 3:00 PM EST Office Visit [facility] [place], [address] [facility] [place] [phone] Blanco Polk MD [address] [facility] [place] [phone] History of nephrectomy (Primary Dx); Stage 1 chronic kidney disease Social History Tobacco Use Types Packs/Day Years Used Date Smoking Tobacco: Never Assessed Comments Unknown Sex and Gender Information Value Date Recorded Sex Assigned at Not on file Legal Sex Female 1:24 PM EST Gender Identity Not on file Sexual Orientation Not on file documented as of this encounter Last Filed Vital Signs Vital Sign Reading Time Taken Comments Blood Pressure 122/76 08/17/2024 3:17 PM EST Pulse - - Temperature - - Respiratory Rate - - Oxygen Saturation - - Inhaled Oxygen Concentration - - Weight - - Height - - Body Mass Index - - documented in this encounter H&P Notes * Blanco Polk MD - 08/17/2024 3:00 PM EST Images from the original note were not included. PATIENT: Haily Xie : 1985 ENCOUNTER: 08/17/2024 PCP: Deo Gustafson MD Haily Xie is a 39 y.o. year old patient who I have followed for a history of: VUR Solitary kidney s/p right nephrectomy In the interval since our last visit I have had the opportunity to review the following when available: -laboratory data, imaging studies, and cardiovascular data -current med list from the patient, the patient's pharmacy, [facility], and Care Everywhere During this visit I had the opportunity for a full review of systems and limited physical exam as outlined below, with the pertinent findings noted and others found to be negative or noncontributory to the current assessment of this patient. HPI: I establish care with this patient in August 2023. Please refer to my initial note and follow-up ultrasound for details. She now presents for routine follow- up. She has not had labs since I saw her last year. She recently slipped on the ice and is experiencing pain. She has had no blood in her urine. She denies any urinary symptoms. She does use nonsteroidal anti-inflammatories on a monthly basis for a couple of days around her menstruation. Otherwise she is on no other medications. She has had no edema. Her blood pressure has been fine. PAST MEDICAL HISTORY: Patient Active Problem List Diagnosis Date Noted ??? History of nephrectomy 09/05/2023 OS: Constitutional: No fever. Respiratory: No shortness of breath. Cardiovascular: No chest pain. Gastrointestinal: No abdominal pain, nausea or vomiting, diarrhea, loss of appetite. Genitourinary: No hematuria, pain, or difficulty voiding. MEDICATIONS: Outpatient Encounter Medications as of 08/17/2024 Medication Sig Dispense Refill ??? [DISCONTINUED] acetaminophen (TYLENOL) 500 MG tablet Take 1,000 mg by mouth every 6 (six) hoursif needed ??? [DISCONTINUED] Docusate Sodium (DSS) 100 MG capsule Take 100 mg by mouth 2 (two) times a day ifneeded No facility-administered encounter medications on file as of 08/17/2024. PHYSICAL EXAM: BP 122/76 Constitutional: No apparent distress Cardiovascular: No JVD elevation; no rub; regular Pulmonary/Chest: No rales; no wheeze Abdominal: Soft and non-tender. Extremities: Edema None LABS: Chemistry Lab Units 06/05/23 1029 POTASSIUM mmol/L 3.4 SODIUM mmol/L 140 CO2 mmol/L 27 CHLORIDE mmol/L 106 Bone Mineral Lab Units 06/05/23 1029 CALCIUM mg/dL 8.9 SUMMARY: Based on the above findings, my interpretation of the available data, and my best efforts to reconcile the active medications, the following problems/diagnoses with recommendations for any further testing, treatment options, and follow-up are provided for your review: Chronic and Active Issues: 1. History of nephrectomy 2. Stage 1 chronic kidney disease Ms. Xie is doing fine. She has a solitary kidney. Her blood pressure is fine. She has no current risk factors for progression of kidney disease. I discussed regular exercise and maintaining a more ideal weight with regard to prevention of diabetes and hypertension which she has a family history of. Otherwise, I have asked her to limit the nonsteroidal anti-inflammatory use. We will be checking labs. If everything is stable I will see her back in a year. No orders of the defined types were placed in this encounter. documented in this encounter Plan of Treatment Upcoming Encounters Date Type Department Care Team (Late st Contact Info) Description 08/08/2025 1:30 PM EST Office Visit [facility] [place], [address] [facility] [place] [place] [address] Blanco Polk MD [address] [facility] [place] [phone] documented as of this encounter Visit Diagnoses Diagnosis History of nephrectomy- Primary Stage 1 chronic kidney disease documented in this encounter Care Teams Sales Correspondent Relationship Specialty Start Date End Date Deo Gustafson MD [address] [place] [phone] PCP - General Emergency Medicine 05/14/23 documented as of this encounter
--- OUTSIDE RECORDS SUMMARY | 2024-08-26 13:49 | XMS_ITS | Clinical Summary ---
Author Organization [facility] Address [address] [place] [address] Phone Care Team Providers Care Le[employer] Machine Operator Name Role Phone Deo Gustafson MD Primary Care Provider [phone] Allergies Active Allergy Reactions Criticality Noted Date Comments Famotidine Hives 11/15/2022 Medications Docusate Sodium (DSS) 100 MG capsule Take 100 mg by mouth 2 (two) times a day if needed 3 08/17/19 25 Discontinued acetaminophen (TYLENOL) 500 MG tablet Take 1,000 mg by mouth every 6 (six) hours if needed 3 08/17/19 25 Discontinued Active Problems Problem Noted Date Diagnosed Date History of nephrectomy 09/05/2023 Encounters Date Type Department Care Team Description 08/17/2024 3:00 PM EST Office Visit [facility] [address] [place] [address] Blanco Polk MD History of nephrectomy (Primary Dx); Stage 1 chronic kidney disease 08/16/2024 Telephone [facility] [address] [place] [address] Eda Short 07/27/2024 Telephone [facility] [address] [place] [address] Mireya Alfred MA from Last 3 Months Social History Tobacco Use Types Packs/Day Years Used Date Smoking Tobacco: Never Assessed Comments Unknown Sex and Gender Information Value Date Recorded Sex Assigned at Not on file Legal Sex Female 1:24 PM EST Gender Identity Not on file Sexual Orientation Not on file Last Filed Vital Signs Vital Sign Reading Time Taken Comments Blood Pressure 122/76 08/17/2024 3:17 PM EST Pulse - - Temperature - - Respiratory Rate - - Oxygen Saturation - - Inhaled Oxygen Concentration - - Weight - - Height - - Body Mass Index - - Plan of Treatment Upcoming Encounters Date Type Department Care Team (Late st Contact Info) Description 08/08/2025 1:30 PM EST Office Visit [facility] [place], [address] [place] [id number] Blanco Polk MD [address] [place] [address] [place] [address] Health Maintenance Due Date Last Done Comments Pneumococcal Vaccine: Pediat rics (0 to 5 Years) and At-Risk Patients (6 to 64 Years) (1 of 2 - PCV) 1993 Hepatitis B Vaccine (1 of 3 - 19+ 3-dose series) 01/02 Influenza Vaccine (#1) 2024 Insurance MEDICAID [place] Care Teams Leather Production Machine Operator Relationship Specialty Start Date End Date Deo Gustafson MD [address] [place] [phone] PCP - General Emergency Medicine 05/14/23
--- OUTSIDE RECORDS SUMMARY | 2024-08-26 13:49 | XMS_ITS | Clinical Summary ---
Demographics Address [address] [facility] [address] [place] [address] Home Phone Mobile Phone Preferred Language es Marital Status Single Hindu Affiliation Unknown Race Unknown Ethnic Group Finnish Author Organization [employer] Address [address] [facility] [address] [place] [address] Care Team Providers Care Button Sewer Hand Name Role Phone SuzannaYvonne frias LYNNE Primary Care Provider [phone] Allergies Active Allergy Reactions Criticality Noted Date Comments Famotidine Hives 11/15/2022 Medications acetaminophen (Tylenol) 500 MG tablet Take 2 tablets (1,000 mg) by mouth every 6 (six) hours if needed for moderate pain or fever for up to 25 doses. 30 tablet 3 Active docusate sodium (Colace) 100 MG capsule Take 1 capsule (100 mg) by mouth if needed in the morning and at bedtime for constipation for up to 30 doses. 30 capsule 3 Active predniSONE (Deltasone) 10 MG tabletIndicatio ns:Acute urticaria Take 4 tablets by mouth every morning for 2 days, then 2 tablets by mouth every morning for 2 days, then 1 tablet by mouth every morning for 2 days, then stop. 14 tablet 4 Active cetirizine (ZyrTEC) 10 MG tabletIndicatio ns:Acute urticaria Take 1 tablet by mouth once or twice daily 60 tablet 2 4 Active propranolol LA (Inderal LA) 60 MG 24 hr capsule Take 1 capsule (60 mg) by mouth Once per day. Do not crush, chew, or split. 90 capsule 1 4 10/03/19 25 Active Active Problems Problem Noted Date Diagnosed Date Bronchitis 05/18/2024 Assessment & Plan (05/18/2024 1:04 PM EST): - Changed Rx to Augmentin. 05/18/24 - No indication for steroids - ER precautions discussed. - Seek medical attention for worsening symptoms. Nonintractable headache 04/05/2024 Assessment & Plan (04/05/2024 12:13 PM EDT): Pt will initiate propranolol after holter completed , Referral to neuro given vague reported hx of right CVA (unable to confirm as outside records unavailable) Follow up in 2-3 months unless develops changes in symptoms Cervicogenic headache 03/27/2024 Assessment & Plan (03/27/2024 9:03 AM EDT): Reviewed option of ketoralac in clinic, pt opts for treatment today, will also initiate propranolol Elevated BP without diagnosis of hypertension Assessment & Plan (03/27/2024 9:04 AM EDT): In setting of headache, no hx of htn, will initiate proranolol Hx of ischemic right ica stroke 03/05/2024 Burning with urination 03/05/2024 Assessment & Plan (03/27/2024 9:02 AM EDT): Culture ordered Acute urticaria 12/01/2023 Assessment & Plan (12/02/2023 2:32 PM EDT): Reviewed possible idiopathic etiology, referral to allergy, resolved continue antihistamine Hx of cardiac arrhythmia 12/01/2023 Assessment & Plan (03/27/2024 9:02 AM EDT): Referral to cardiology pt is uncertain of exact history Assessment & Plan (12/02/2023 2:32 PM EDT): Per pt report, denies active symptoms, referral to cardiology Slow transit constipation 12/01/2023 Assessment & Plan (12/02/2023 2:33 PM EDT): Monitor, continue colace. CVA (cerebral vascular accident) 10/28/2023 Assessment & Plan (12/02/2023 2:33 PM EDT): Pt reports possible hx of cva, potentially secondary to arrythmia, has not had follow up, denies palpitations, referral to cardiology Aware of s.s requiring immediate work up Healthcare maintenance 09/10/2023 Assessment & Plan (11/22/2023 8:06 PM EDT): Pap completed 23, due [id number] Low cad risk overall, mildly elevated cholesterol focus on healthy lifestyle, repeat in 6 months Assessment & Plan (09/10/2023 10:43 AM EDT): Utd on pap, declines vaccines, routine labs ordered Anticipatory guidance reviewed Chronic pain of left knee 09/10/2023 Assessment & Plan (11/22/2023 8:07 PM EDT): In care with physical therapy Assessment & Plan (09/10/2023 10:42 AM EDT): Crepitus of patellar tendon, no trauma, chronic pain worse with activity, Referral to PT , hx has completed x-ray, if no improvement, referral to ortho Pt aware to report any increased pain or instability Fatigue 09/10/2023 Assessment & Plan (09/10/2023 10:43 AM EDT): Mild thyromegaly , tsh ordered History of nephrectomy 03/31/2023 Assessment & Plan (11/22/2023 8:07 PM EDT): Stable in care with renal Pelvic pain 11/15/2022 Encounters Date Type Department Care Team Description 08/21/2024 Orders Only [facility] External Provider, [facility] 07/14/2024 Telephone [facility] [address] [place] [address] Yvonne Roldan NP Care Coordination (ICP Care Plan ) 07/05/2024 Orders Only [facility] External Provider, [facility] 07/05/2024 Telephone [facility] [address] [place] [address] Yvonne Roldan NP No Show 07/01/2024 Telephone [facility] [address] [place] [address] Jes Toledo [place] Chart Prep from Last 3 Months Immunizations Name Administration Dates Next Due Tdap 08/16/2022 Social History Tobacco Use Types Packs/Day Years Used Date Smoking Tobacco: Never Passive Smoke Exposure: Never Smokeless Tobacco: Never Tobacco Cessation:Counseling Given: Not Answered Alcohol Use Standard Drinks/Week Comments Never 0 (1 standard drink = 0.6 oz pur e alcohol) Depression Answer Date Recorded Patient Health Questionnaire-9 Score 0 09/10/2023 Patient Health Questionnaire-9 Score 0 09/10/2023 Last PHQ-9: Questionnaire Data Not on file 0 09/10/2023 Housing Stability Answer Date Recorded What is your housing situation today? I have amos meza 09/03/[address] you li ve. Do you have problems with any of the following? None of the above 09/03/2023 Food Insecurity Answer Date Recorded Within the past 12 months, y ou worried that your food would run out before you got money to buy more: Never True 09/03/2023 Within the past 12 months,th e food you bought just didn't last and you didn't have enough money to get more: Never True 11/2023 Transportation Answer Date Recorded In the past 12 months, has l ack of transportation kept you from medical appts, meetings, work or from getting things needed for daily living? No 09/03/2023 Utilities Answer Date Recorded In the past 12 months, has t he electric, gas, oil or water company threatened to shut off services in your home? No 09/03/2023 Depression Answer Date Recorded Patient Health Questionnaire-2 Score 0 09/10/2023 Comments Unknown Sex and Gender Information Value Date Recorded Sex Assigned at Female 08/20/2022 12:51 PM EST Legal Sex Female 12:46 PM EST Gender Identity Female 08/20/2022 12:51 PM EST Sexual Orientation Straight 08/20/2022 12 :53 PM EST Last Filed Vital Signs Vital Sign Reading Time Taken Comments Blood Pressure 141/95 05/18/2024 11:44 AM EST Pulse 98 05/18/2024 11:52 AM EST Temperature 36.7 ??C (98.1 ??F) 05/18/2024 1 1:44 AM EST Respiratory Rate 20 05/18/2024 11:4 4 AM EST Oxygen Saturation 98% 05/18/2024 11: 44 AM EST RA Inhaled Oxygen Concentration - - Weight 84.3 kg (185 lb 12.8 oz) 024 11:34 AM EDT Height 154.9 cm (5' 1 ) 04/05/2024 11:3 4 AM EDT Body Mass Index 35.11 04/05/2024 11:34 AM EDT Plan of Treatment Health Maintenance Due Date Last Done Comments Alcohol/Substance Use Screening 1999 Family Planning (PISQ) 2002 Hepatitis B Vaccines (1 of 3 - 19+ 3-dose series) 2006 COVID-19 Vaccine ( - 2023-2 5 season) 2024 Influenza Vaccine (#1) 2024 SDOH Screening 09/02/2024 09/03/2023 Depression Screening 09/09/2024 09/10/2023, 09/10/2023 Tobacco Screening 05/18/2025 05/18/2024 Pap Smear 11/15/2025 11/15/2022 Cervical Cancer Screening 11/16/2027 HPV/Cotest 11/16/2027 11/15/2022 Lipid Panel 09/09/2028 09/10/2023 DTaP/Tdap/Td Vaccines (2 - T d or Tdap) 08/16/2032 08/16/2022 Zoster Vaccines (1 of 2) 2037 RSV Patients and Patients Aged 60 years or older (1 - 1-dose 75+ series) 2062 HIV Screening Completed 09/10/2023 Hepatitis C Screening Completed 09/10/2023 HIB Vaccines Aged Out No longer eligi ble based on patient's age to complete this topic HPV Vaccines Aged Out No longer eligi ble based on patient's age to complete this topic Hepatitis A Vaccines Aged Out No long er eligible based on patient's age to complete this topic IPV Vaccines Aged Out No longer eligi ble based on patient's age to complete this topic Meningococcal Vaccine Aged Out No suki adrian eligible based on patient's age to complete this topic Pneumococcal Vaccine: Pediatrics (0 to 5 Years) and At-Risk Patients (6 to 49) Years) Aged Out No longer eligible b ased on patient's age to complete this topic RSV under 20 months Aged Out No longe r eligible based on patient's age to complete this topic Rotavirus Vaccines Aged Out No longer eligible based on patient's age to complete this topic Procedures Procedure Name Priority Date/Time Associated Diagnosis Comments CT LUMBAR SPINE WO CONTRAST Routine 08/21/2024 4:28 PM EST HCG, TOTAL, QN Routine 08/21/2024 3:13 PM EST XR KNEE 4+ VIEWS RIGHT Routine 08/21/2024 2:43 PM EST XR CHEST 1 VIEW Routine 07/05/2024 5:38 PM EST SARS COV2/INFLUENZA A/B AND RSV RNA QL NAAT Routine 07/05/2024 5:29 PM EST STREP A NUCLEIC ACID Routine 07/05/2024 5:29 PM EST HEPATITIS C ANTIBODY Routine 09/10/2023 9:58 AM EDT Healthcare maintenance HIV 1/2 ANTIGEN/ANTIBODY, FOURTH GENERATION W/RFL Routine 09/10/2023 9:58 AM EDT Healthcare maintenance LIPID PANEL, STANDARD Routine 09/10/2023 9:58 AM EDT Healthcare maintenance THINPREP IMAGING PAP AND HPV MRNA E6/E7 WITH REFLEX TO HPV 16,18/45 Routine 11/15/2022 10:30 AM EDT Routine Papanicolaou smear from Last 3 Months or Most Recently Relevant to Health Maintenance Results * CT Lumbar Spine w/o Contrast (08/21/2024 4:28 PM EST) Anatomical Region Laterality Modality Spine, L-spine Computed Tomogra phy 08/21/2024 4:28 PM EST Narrative 08/21/2024 4:30 PM EST ? [facility] ?[address] ?[place] [address] ? CT Scan Report ? Signed ? Patient: Ten,Haily M ? MR#: [id number] ? : 1985 ?Acct:[id number] ? Age/Sex: 39 / F ?ADM Date: 08/21/24 ? Loc: HO.ED ? Attending Dr: ? Ordering Physician: Candice Faye ?? Date of Service: 08/21/24 ?? Procedure(s): CT lumbar spine wo IV con ?? Accession Number(s): [id number] ? cc: Yvonne Roldan AIRLINE STATION AGENT; Candice Faye ? Report Number: ?? [id number]: Total DLP = ??585.00 mGy-cm ? CLINICAL HISTORY: fall onto back, low back coccyx pain, r o fx ? CT lumbar spine without contrast ? Comparison: None ? Findings: ?? Vertebral alignment is within normal limits. ?? No acute fractures or dislocations. ?? No significant degenerative change. ? Visualized abdominal contents unremarkable. ? IMPRESSION: ?? No acute findings. ? This document has been electronically signed by: Noe Tavarez MD on ?? 08/21/2024 16:28:56 ? Dictated By: ?Noe Tavarez MD ? Signed By: ?<Electronically signed by Noe Tavarez MD in OV> ? 08/21/24 1629 ? DD/ 1628 ? TD/TT: 08/21/24 1628 ? Teller Manager: ? Procedure Note Henrique, Estephania - 08/21/[address] [place] [address] [address] Scan Report Signed Patient: Haily Caal MR#: [id number] : 1985Acct:[id number] Age/Sex: 39 / FADM Date: 08/21/24 Loc: HO.ED Attending Dr: Ordering Physician: Candice Faye Date of Service: 08/21/24 Procedure(s): CT lumbar spine wo IV con Accession Number(s): [id number] cc: Yvonne Roldan AIRLINE STATION AGENT; Candice Faye Report Number: [id number]: Total DLP = 585.00 mGy-cm CLINICAL HISTORY: fall onto back, low back coccyx pain, r o fx CT lumbar spine without contrast Comparison: None Findings: Vertebral alignment is within normal limits. No acute fractures or dislocations. No significant degenerative change. Visualized abdominal contents unremarkable. IMPRESSION: No acute findings. This document has been electronically signed by: Noe Tavarez MD on 08/21/2024 16:28:56 Dictated By: Noe Tavarez MD Signed By: <Electronically signed by Noe Tavarez MD in OV> 08/21/24 1629 DD/ 1628 TD/TT: 08/21/24 1628 Teller Manager: [facility] External Provider IMG CT PROCEDURES Edited Result - Final * hCG, Total, Quantitative (08/21/2024 3:13 PM EST) HCG Quantitative <2 mIU/mL [facility] Comment:Weeks post LMP Appro ximate hCG(Last Menstrual Period) Range (mIU/ml)3 - 4 weeks 9 - 1304 - 5 weeks 75 - 2,6005 - 6 weeks 850 - 20,8006 - 7 weeks 4000 - 100,2007 - 12 weeks 11,500 - 289,50454 - 16 weeks 18,300 - 137,19987 - 29 weeks (2nd trimester) 1,400 - 53,63654 - 41 weeks (3rd trimester) 940 - 60,000The [place] B- hCG assay is used for the early detection ofpregnancy; it cannot be used to diagnose any conditionunrelated to . If a B-hCG level is not supportedby the clinical evidence, results should be confirmed by analternative method (qualitative urine hCG, for example). 08/21/2024 3:13 PM EST 08/21/2024 3:16 PM EST Generic External Data Provider LAB BLOOD ORDERAB LES Final Result [facility] [address] [place] [phone] * XR Knee 4+ Views Right (08/21/2024 2:43 PM EST) Anatomical Region Laterality Modality Lower Extremities, Knee Right Radiogra phic Imaging 08/21/2024 2:43 PM EST Narrative 08/21/2024 2:45 PM EST ? [facility] ?[address] ?[place] [address] ?XRay Report ? Signed ? Patient: Ten,Haily M ? MR#: [id number] ? : 1985 ?Acct:[id number] ? Age/Sex: 39 / F ?ADM Date: 08/21/24 ? Loc: HO.ED ? Attending Dr: ? Ordering Physician: Candice Faye ?? Date of Service: 08/21/24 ?? Procedure(s): XR knee RT 4V ?? Accession Number(s): [id number] ? cc: Yvonne Roldan NP; Candice Faye ? CLINICAL HISTORY: knee inury, numbness to R lower leg ? 4 view right knee ? Comparison: None ? Findings: ?? No fractures or dislocations. ?? No significant loss of joint space, osteophytes, or erosions. ?? No joint effusion. ?? No radiopaque foreign body. ? IMPRESSION: ?? 1. No acute findings. ? This document has been electronically signed by: Noe Tavarez MD on ?? 08/21/2024 14:43:56 ? Dictated By: ?Noe Tavarez MD ? Signed By: ?<Electronically signed by Noe Tavarez MD in OV> ? 08/21/24 1444 ? DD/ 1443 ? TD/TT: 08/21/24 1443 ? Teller Manager: ? Procedure Note Estephania Duenas - 08/21/[address] [address] XRay Report Signed Patient: Haily Caal MR#: [id number] : 1985Acct:[id number] Age/Sex: 39 / FADM Date: 08/21/24 Loc: HO.ED Attending Dr: Ordering Physician: Candice Faye Date of Service: 08/21/24 Procedure(s): XR knee RT 4V Accession Number(s): [id number] cc: Yvonne Roldan AIRLINE STATION AGENT; Candice Faye CLINICAL HISTORY: knee inury, numbness to R lower leg 4 view right knee Comparison: None Findings: No fractures or dislocations. No significant loss of joint space, osteophytes, or erosions. No joint effusion. No radiopaque foreign body. IMPRESSION: 1. No acute findings. This document has been electronically signed by: Noe Tavarez MD on 08/21/2024 14:43:56 Dictated By: Noe Tavarez MD Signed By: <Electronically signed by Noe Tavarez MD in OV> 08/21/24 1444 DD/ 1443 TD/TT: 08/21/24 1443 Teller Manager: [facility] External Provider IMG XR PROCEDURES Edited Result - Final * XR Chest 1 View (07/05/2024 5:38 PM EST) Anatomical Region Laterality Modality Chest Radiographic Diandra ging 07/05/2024 5:38 PM EST Narrative 07/05/2024 5:39 PM EST ? [facility] ?[address] ?[place] [address] ?XRay Report ? Signed ? Patient: Haily Caal ? MR#: [id number] ? : 1985 ?Acct:[id number] ? Age/Sex: 39 / F ?ADM Date: 07/05/24 ? Loc: HO.ED ? Attending Dr: ? Ordering Physician: Alan Wylie ?? Date of Service: 07/05/24 ?? Procedure(s): XR chest 1V ?? Accession Number(s): [id number] ? cc: Alan Wylie; Yvonne Roldan AIRLINE STATION AGENT ? CLINICAL HISTORY: Pneumonia ? 1 view chest x-ray ? Comparison: CR/UT/SR - XR CHEST 2V - /24 17:28 EST ? Findings: ?? No consolidation or effusion. ?? Normal size heart. ?? No acute fracture. ? IMPRESSION: ?? 1. No acute findings. ? This document has been electronically signed by: Noe Tavarez MD on ?? 07/05/2024 17:38:14 ? Dictated By: ?Noe Tavarez MD ? Signed By: ?<Electronically signed by Noe Tavarez MD in OV> ? 07/05/241738 ? DD/ ? TD/TT: 07/05/248 ? Teller Manager: ? Procedure Note Donlollyter, Image - 07/05/[address] [address] XRay Report Signed Patient: Haily Caal MR#: [id number] : 1985Acct:[id number] Age/Sex: 39 / FADM Date: 07/05/24 Loc: HO.ED Attending Dr: Ordering Physician: Alan Wylie Date of Service: 07/05/24 Procedure(s): XR chest 1V Accession Number(s): [id number] cc: Alan Wylie; Yvonne Roldan NP CLINICAL HISTORY: Pneumonia 1 view chest x-ray Comparison: CR/UT/SR - XR CHEST 2V - 05/13/24 17:28 EST Findings: No consolidation or effusion. Normal size heart. No acute fracture. IMPRESSION: 1. No acute findings. This document has been electronically signed by: Noe Tavarez MD on 07/05/2024 17:38:14 Dictated By: Noe Tavarez MD Signed By: <Electronically signed by Noe Tavarez MD in OV> 07/05/24 1739 DD/ 1738 TD/TT: 07/05/24 1738 Teller Manager: [facility] External Provider IMG XR PROCEDURES Final Result * Strep A Nucleic Acid (07/05/2024 5:29 PM EST) IDNOW SERIAL# [id number] [facility] Strep A Nucleic Acid Negative Negative [facility] Comment:All test results mus t be correlated with clinical findings.This test has not been evaluated for monitoring treatment ofinfection.Additional follow-up testing using the culture method isrequired if the result is negative and clinical symptomspersist, or in the event of an acute rheumatic feveroutbreak. 07/05/2024 5:29 PM EST 07/05/2024 5:31 PM EST Generic External Data Provider LAB MICROBIOLOGY - GENERAL ORDERABLES Final Result Performing Organization Address [facility] Co de Phone Number [facility] [address] [place] [phone] * SARS-CoV-2 RNA, Influenza A/B, and RSV RNA, Ql NAAT (07/05/2024 5:29 PM EST) Influenza A PCR NEGATIVE Negative [facility] Influenza B PCR NEGATIVE Negative [facility] Resp Syncy Virus RNA Qual PCR NEGATIVE Negative [facility] SARS COV2 PCR NEGATIVE Negative [facility] Comment:All test results mus t be correlated with clinical findings.Negative results do not preclude SARS-CoV2, influenza Avirus, influenza B virus and/or RSV infectionand should not be used as the sole basis for treatment orother patient management decisions. Negative results must becombined with clinical observations, patient history, andepidemiological information.This test has not been evaluated for monitoring treatment ofinfection.This test has been authorized by the FDA under an EmergencyUse Authorization (EUA) for use by authorized laboratories.Testing performed on the [employer] GeneXpert utilizingreal-time RT-PCR.All SARS CoV2 and positive influenza A/B results arereported to [facility]. 07/05/2024 5:29 PM EST 07/05/2024 5:31 PM EST Generic External Data Provider LAB MICROBIOLOGY - GENERAL ORDERABLES Final Result Performing Organization Address [facility] Co de Phone Number [facility] [address] [place] [phone] * Hepatitis C Ab (09/10/2023 9:58 AM EDT) Hepatitis C Antibody Nonreactive Nonreactive [facility] Comment:Antibodies to HCV no t detected; does not exclude early acuteHCV infection. Blood Venous blood specimen / Unknown 09/10/2023 9:58 AM EDT 09/10/2023 11:11 AM EDT us Yvonne Roldan NP LAB BLOOD ORDERABLES Final Resul t Performing Organization Address [facility] Co de Phone Number [facility] [address] [place] [phone] [phone] * HIV-1/2 Antigen and Antibodies, Fourth Generation, with Reflexes (09/10/2023 9:58 AM EDT) HIV AB/AG Nonreactive Nonreactive [facility] Comment:HIV-1 p24 Ag and/or HIV-1/HIV-2 Ab not detected.A test result that is nonreactive does not exclude thepossibility of exposure to or infection with HIV-1 and/orHIV-2. Nonreactive results in this assay for individualswith prior exposure to HIV-1 and/or HIV-2 may be due toantigen and antibody levels that are below the limit ofdetection of this assay.The [employer] HIV Ag/Ab Combo assay result andsupplemental assay results should be interpreted inconjunction with the patient's clinical presentation,history and other laboratory results. If the results areinconsistent with clinical evidence, additional testing issuggested to confirm the result. Blood Venous blood specimen / Unknown 09/10/2023 9:58 AM EDT 09/10/2023 11:11 AM EDT us Yvonne Roldan NP LAB BLOOD ORDERABLES Final Resul t Performing Organization Address [facility] Co de Phone Number [facility] [address] [place] [phone] * (ABNORMAL) Lipid Panel, Standard (09/10/2023 9:58 AM EDT) Triglycerides 181(H) <150 mg/dL [facility] Comment:Desirable Triglyceri de: less than 150 mg/dLBorderline High Triglyceride 150-199 mg/dLHigh Triglyceride: 200-499 mg/dLVery High Triglyceride: greater than or equal to 5OO mg/dL Cholesterol 231(H) <200 mg/dL [facility] Comment:Desirable Cholestero l: less than 200 mg/dLBorderline High Cholesterol: 200-239 mg/dLHigh Cholesterol: greater than 239 mg/dL LDL Cholesterol Calculated 148(H) <100 mg/dL [facility] Comment:Desirable LDL: less than 100 mg/dLNear Optimal/Above Optimal LDL: 110- 129 mg/dLBorderline High LDL: 130-159 mg/dLHigh LDL: 160-189 mg/dLVery High LDL: greater than or equal to 190 mg/dL HDL Cholesterol 47 >40 mg/dL [facility] Comment:Desirable HDL: great er than 40 mg/dL Note: This HDL assay may give artificially low results in patients with liver disease. Blood Venous blood specimen / Unknown 09/10/2023 9:58 AM EDT 09/10/2023 11:16 AM EDT Yvonne Roldan AIRLINE STATION AGENT LAB BLOOD ORDERABLES Final Resul t [facility] [address] [place] [phone] * Thinprep TIS PAP And HPV mRNA E6/E7 With Reflex To HPV 16,18/45 (11/15/2022 10:30 AM EDT) Clinical Information: Routine exam [employer], In[employer] LMP: [phone] A vida é feita de [place] [employer] Prev. PAP: NONE GIVEN [facility] Prev. BX: NO [facility] [employer] [facility] SOURCE: None given [facility] Statement Of Adequacy: [employer] Comment: Specimen processed and examined, but unsatisfactory for evaluation due to an insufficient number of squamous cells. Interpretation/ Result: Unable to provide interpretation due to unsatisfactory specimen adequacy. [employer] COMMENT: [employer] Comment: This case could not be evaluated with computer assisted technology. The slide was manually screened according to routine procedures. Cytotechnologis t: [employer], In[employer] Comment: GARCIA, CT(ASCP) CT screening location: [address] ??[phone] Review Cytotechnologis t: A vida é feita de [place] [employer] Comment: GSG, CT(ASCP) CT screening location: [address] ??[phone] (Always Message) [employer] Comment: EXPLANATORY NOTE: The Pap is a screening test for cervical cancer. It is not a diagnostic test and is subject to false negative and false positive results. It is most reliable when a satisfactory sample, regularly obtained, is submitted with relevant clinical findings and history, and when the Pap result is evaluated along with historic and current clinical information. HPV nRNA E6/E7 Not Detected Not Detected [employer] Comment: Methodology: Advertising Sales Agent-Mediated Amplification This assay detects E6/E7 viral messenger RNA (mRNA) from 14 high-risk HPV types (16,18,31,33,35,39,45,51,52,56,58,59,66,68). Cervical sources are required for HPV testing. If a vaginal source from a patient who has had a total hysterectomy with removal of cervix was submitted, please contact the testing laboratory for alternative testing options. For additional information, please refer to [email or web address].[employer]/faq/PGN471b5 (This link if provided for information/ educational purposes only.) Genital 11/15/2022 10:3 0 AM EDT 11/18/2022 7:32 AM EDT Barbi Jones MD LAB PATHOLOGY ORDERABLES Final Result [address], [place] [address] A vida é feita de [place] [employer] [address] [place] [phone] from Last 3 Months or Most Recently Relevant to Health Maintenance Insurance * Guarantor: Haily Xie Account Type Relation to Patient Date of Phone Billing Address Personal/Family Self 1985 [address] [facility] [address] [place] [address] [place] C3 Care Teams Button Sewer Hand Relationship Specialty Start Date End Date Yvonne Roldan NP [address] [place] [address] PCP - General Family Medicine 09/10/23 Mei loja Foam CasterHydraulic Design Engineer 07/14/24
--- OUTSIDE RECORDS SUMMARY | 2024-08-26 13:49 | XMS_ITS | Encounter Summary ---
Author Organization [facility] Address [address] [address] Phone Care Team Providers Care Compliance Associate Name Role Phone Deo Gustafson MD Primary Care Provider [phone] Encounter Details Date Type Department Care Team (Late Contact Info) Description 10/24/2023 Documentation Only [facility] [address] [place] [address] Mireya AlfredBUCHANAN, [place] [address] [place] [phone] Social History Tobacco Use Types Packs/Day Years Used Date Smoking Tobacco: Never Assessed Comments Unknown Sex and Gender Information Value Date Recorded Sex Assigned at Not on file Legal Sex Female 1:24 PM EST Gender Identity Not on file Sexual Orientation Not on file documented as of this encounter Plan of Treatment Upcoming Encounters Date Type Department Care Team (Late Contact Info) Description 08/08/2025 1:30 PM EST Office Visit [facility] [address] [place] [phone] Blanco Polk MD [address] [place] [address] [place] [address] documented as of this encounter Visit Diagnoses Not on filedocumented in this encounter Care Teams Compliance Associate Relationship Specialty Start Date End Date Deo Gustafson MD [address] [place] [phone] PCP - General Emergency Medicine 05/14/23 documented as of this encounter
--- OUTSIDE RECORDS SUMMARY | 2024-08-26 13:49 | XMS_ITS | Encounter Summary ---
Demographics Address [address] [facility] [place] [address] Home Phone Mobile Phone Preferred Language es Marital Status Single Rastafarian Affiliation Unknown Race Unknown Ethnic Group Spanish Author Organization [employer] Address [address] [facility] [address] [place] [address] Care Team Providers Care Uplands Division Director Name Role Phone Jamar Yvonnearmando BATISTA Primary Care Provider [phone] Encounter Details Date Type Department Care Team (Late st Contact Info) Description 08/21/2024 Orders Only [facility] External Provider, [facility] Social History Tobacco Use Types Packs/Day Years Used Date Smoking Tobacco: Never Passive Smoke Exposure: Never Smokeless Tobacco: Never Alcohol Use Standard [...] on file documented as of this encounter Procedures Procedure Name Priority Date/Time Associated Diagnosis Comments CT LUMBAR SPINE WO CONTRAST Routine 08/21/2024 4:28 PM EST HCG, TOTAL, QN Routine 08/21/2024 3:13 PM EST XR KNEE 4+ VIEWS RIGHT Routine 08/21/2024 2:43 PM EST documented in this encounter Results * CT Lumbar Spine w/o Contrast (08/21/2024 4:28 PM EST) Anatomical Region Laterality Modality Spine, L-spine Computed Tomogra phy 08/21/2024 4:28 PM EST Narrative 08/21/2024 4:30 PM EST ? [facility] ?[address] ?[place] [address] ? CT Scan Report ? Signed ? Patient: Haily Caal ? MR#: [id number] ? : 1985 ?Acct:[id number] ? Age/Sex: 39 / F ?ADM Date: 08/21/24 ? Loc: HO.ED ? Attending Dr: ? Ordering Physician: Candice Faye ?? Date of Service: 08/21/24 ?? Procedure(s): CT lumbar spine wo IV con ?? Accession Number(s): [id number] ? cc: Yvonne Roldan AUTOS DISASSEMBLER; Candice Faye ? Report Number: ?? [id number]: Total DLP = ??585.00 mGy-cm ? CLINICAL [...] ?? 08/21/2024 16:28:56 ? Dictated By: ?Noe Tavraez MD ? Signed By: ?<Electronically signed by Noe Tavarez MD in OV> ? 08/21/249 ? DD/ 1628 ? TD/TT: 08/21/24 1628 ? Health Type Technician: ? Procedure Note Donazaminterpreter, Image - 08/21/[address] [address] [address] Scan Report Signed Patient: Haily Caal MR#: [id number] : 1985Acct:[id number] Age/Sex: 39 / FADM Date: 08/21/24 Loc: HO.ED Attending Dr: Ordering Physician: Candice Faye Date of Service: 08/21/24 Procedure(s): CT lumbar spine wo IV con Accession Number(s): [id number] cc: Yvonne Roldan AUTOS DISASSEMBLER; Candice Faye Report Number: [id number]: Total DLP = 585.00 mGy-cm CLINICAL HISTORY: [...] 08/21/24 1629 DD/ 1628 TD/TT: 08/21/24 1628 Health Type Technician: [facility] External Provider IMG CT PROCEDURES Edited Result - Final * hCG, Total, Quantitative (08/21/2024 3:13 PM EST) HCG Quantitative <2 mIU/mL [facility] Comment:Weeks post LMP Appro ximate hCG(Last Menstrual Period) Range (mIU/ml)3 - 4 weeks 9 - 1304 - 5 weeks 75 - 2,6005 - 6 weeks 850 - 20,8006 - 7 weeks 4000 - 100,2007 - 12 weeks 11,500 - 289,58751 - 16 weeks 18,300 - 137,73205 - 29 weeks (2nd trimester) 1,400 - 53,98335 - 41 weeks (3rd trimester) 940 - 60,000The [place] B- hCG assay is used for the early detection ofpregnancy; it cannot be used to diagnose any conditionunrelated to . If a B-hCG level is not supportedby the clinical evidence, results should be confirmed by analternative method (qualitative urine hCG, for example). 08/21/2024 3:13 PM EST 08/21/2024 3:16 PM EST us Generic External Data Provider LAB BLOOD ORDERAB LES Final Result Performing Organization Address City/State/[facility] Co de Phone Number [facility] [address] [place] [phone] * XR Knee 4+ Views Right (08/21/2024 2:43 PM EST) Anatomical Region Laterality Modality Lower Extremities, Knee Right Radiogra phic Imaging 08/21/2024 2:43 PM EST Narrative 08/21/2024 2:45 PM EST ? [facility] ?[address] [facility] ?[place] [address] ?XRay Report ? Signed ? Patient: Ten,Haily M ? MR#: [id number] ? : 1985 ?Acct:[id number] ? Age/Sex: 39 / F ?ADM Date: /22/25 ? Loc: HO.ED ? Attending Dr: ? Ordering Physician: Candice Faye ?? Date of Service: 08/21/24 ?? Procedure(s): XR knee RT 4V ?? Accession Number(s): [id number] ? cc: Yvonne Roldan NP; Candice Faye [...] DD/ 1443 ? TD/TT: 08/21/24 1443 ? Health Type Technician: ? Procedure Note Donotchidiinterpreter, Image - 08/21/2024 [place] [address] XRay Report Signed Patient: Haily Caal MR#: [id number] : 1985Acct:[id number] Age/Sex: 39 / FADM Date: 08/21/24 Loc: HO.ED Attending Dr: Ordering Physician: Candice Faye Date of Service: 08/21/24 Procedure(s): XR knee RT 4V Accession Number(s): [id number] cc: Yvonne Roldan AUTOS DISASSEMBLER; Candice Faye CLINICAL HISTORY: knee inury, numbness to R lower leg 4 view right knee Comparison: None Findings: No fractures or dislocations. No significant loss of joint space, osteophytes, or erosions. No joint effusion. No radiopaque foreign body. IMPRESSION: 1. No acute findings. This document has been electronically signed by: oNe Tavarez MD on 08/21/2024 14:43:56 Dictated By: Noe Tavarez MD Signed By: <Electronically signed by Noe Tavarez MD in OV> 08/21/244 DD/ 42 TD/TT: 08/21/241442 Health Type Technician: [facility] External Provider IMG XR PROCEDURES Edited Result - Final documented in this encounter Visit Diagnoses Not on filedocumented in this encounter Additional Health Concerns Assessment Noted Time PHQ-9 Depression Total Score: 0 09/10/19 9:11 AM EDT documented as of this encounter Care Teams Uplands Division Director Relationship Specialty Start Date End Date Yvonne Roldan NP [address] [place] [address] PCP - General Family Medicine 09/10/23 Mei loja Business Unit DirectorTractor Expert 07/14/24 documented as of this encounter
--- OUTSIDE RECORDS SUMMARY | 2024-08-26 13:49 | XMS_ITS | Encounter Summary ---
Demographics Address [address] [facility] [address] [place] [address] Home Phone Mobile Phone Preferred Language es Marital Status Single Zoroastrian Affiliation Unknown Race Unknown Ethnic Group Sri Lankan Author Organization [employer] Address [address] [facility] 7[address] [place] [address] Care Team Providers Care Zinc Plate Grainer Name Role Phone Yvonne Roldan NP Primary Care Provider [phone] Encounter Details Date Type Department Care Team (Late st Contact Info) Description 11/18/2022 Orders Only [facility] MEDICINE [address] [place], [place] [phone] Barbi Jones MD [address] [place], [place] [phone] Bacterial vaginitis (Primary Dx) Social History Tobacco Use Types Packs/Day Years [...] Orientation Straight 08/20/2022 12 :53 PM EST COVID-19 Exposure Response Date Recorded In the last 10 days, have yo u been in contact with someone who was confirmed or suspected to have Coronavirus/COVID-19? No / Unsure 11/15/2022 9:40 AM EDT documented as of this encounter Plan of Treatment Not on file documented as of this encounter Visit Diagnoses Diagnosis Bacterial vaginitis- Primary Unspecified vaginitis and vulvovaginitis documented in this encounter Care Teams Zinc Plate Grainer Relationship Specialty Start Date End Date Yvonne Roldan NP [address] [place] [address] PCP - General Family Medicine 09/10/23 Mei loja Arts And Crafts InstructorApartment Leasing Consultant 07/14/24 documented as of this encounter
--- OUTSIDE RECORDS SUMMARY | 2024-08-26 13:49 | XMS_ITS | Encounter Summary ---
Author Organization [facility] Address [address] [facility] [address] [place] [address] Phone Care Team Providers Care Certified Family Mediator Name Role Phone Deo Gustafson MD Primary Care Provider [phone] Encounter Details Date Type Department Care Team (Late st Contact Info) Description 07/27/2024 Telephone [facility] [address] [place] [address] [place] [address] [place] [phone] Social History Tobacco Use Types Packs/Day Years Used Date Smoking Tobacco: Never Assessed Comments Unknown Sex and Gender Information Value Date Recorded Sex Assigned at Not on file Legal Sex Female 1:24 PM EST Gender Identity Not on file Sexual Orientation Not on file documented as of this encounter Miscellaneous Notes * Telephone Encounter - Mireya Alfred MA - 07/27/2024 1:54 PM EST Lm on letting pt know that due to a change in Dr. Mayberry schedule we had to move the appt on 08/16/24 from 3pm to 1015am documented in this encounter Plan of Treatment Upcoming Encounters Date Type Department Care Team (Late st Contact Info) Description 08/08/2025 1:30 PM EST Office Visit [facility] [address] [place] [address] Blanco Polk MD [address] [facility] [place] [phone] documented as of this encounter Visit Diagnoses Not on filedocumented in this encounter Care Teams Certified Family Mediator Relationship Specialty Start Date End Date Deo Gustafson MD [address] [place] [address] PCP - General Emergency Medicine 05/14/23 documented as of this encounter
== END 2024-08-26 11:23 | disposition home or self-care (01) ==
LOC: HO.LAB 11:22
PROVIDERS: PCP Nurse Practitioner Family; Visit Provider Internal Medicine Nephrology
DX: Z90.5 Acquired absence of kidney (principal); N18.1 Chronic kidney disease, stage 1; R80.9 Proteinuria, unspecified
CPT/HCPCS: 36415; 80051; 82310; 82565; 82570; 84156; 84520; 85025

== ENCOUNTER 2024-12-20 16:21 | Outpatient (REF) | payer MEDICAID, SELFPAY ==
--- OUTSIDE RECORDS SUMMARY | 2024-12-20 15:45 | XMS_ITS | Encounter Summary ---
Demographics Address [address] [facility] [address] [place] [address] Home Phone Mobile Phone Preferred Language es Marital Status Single Congregational Affiliation Unknown Race Unknown Ethnic Group Unknown Author Organization [employer] Address [address] [facility] [address] [place] [address] Care Team Providers Care Ramp Jockey Name Role Phone Yvonne Roldan NP Primary Care Provider [phone] Encounter Details Date Type Department Care Team (Late st Contact Info) Description 12/20/2024 3:45 PM EDT Office Visit [facility] MEDICINE [address] [place], [place] [phone] Yvonne Roldan NP [address] [place], [place] [phone] Chronic tension-type headache, not intractable (Primary Dx); Dietary counseling; Exercise counseling; Edema, unspecified type Social History Tobacco Use Types Packs/Day Years Used Date Smoking Tobacco: Never Passive Smoke Exposure: Never Smokeless Tobacco: Never Alcohol Use Standard Drinks/Week Comments Never 0 (1 standard drink = 0.6 oz pur e alcohol) Depression Answer Date Recorded Patient Health Questionnaire-9 Score 1 12/20/2024 Patient Health Questionnaire-9 Score 1 12/20/2024 Last PHQ-9: Questionnaire Data Not on file 0 12/20/2024 Housing Stability Answer Date Recorded What is your housing situation today? I have amos meza 12/10/[address] you li ve. Do you have problems with any of the following? None of the above 12/10/2024 Food Insecurity Answer Date Recorded Within the past 12 months, y ou worried that your food would run out before you got money to buy more: Never True 12/10/2024 Within the past 12 months,th e food you bought just didn't last and you didn't have enough money to get more: Never True Transportation Answer Date Recorded In the past 12 months, has l ack of transportation kept you from medical appts, meetings, work or from getting things needed for daily living? No 12/10/2024 Utilities Answer Date Recorded In the past 12 months, has t he electric, gas, oil or water company threatened to shut off services in your home? No 12/10/2024 Depression Answer Date Recorded Patient Health Questionnaire-2 Score 0 12/20/2024 Internet Access Answer Date Recorded Internet Access Q1 Yes 12/10/2024 Internet Access Q2 Not on file 12/10/2024 Comments Unknown Sex and Gender Information Value Date Recorded Sex Assigned at Female 08/20/2022 12:51 PM EST Legal Sex Female 12:46 PM EST Gender Identity Female 08/20/2022 12:51 PM EST Sexual Orientation Straight 08/20/2022 12 :53 PM EST documented as of this encounter Last Filed Vital Signs Vital Sign Reading Time Taken Comments Blood Pressure 102/82 12/20/2024 4:03 PM EDT Pulse 75 12/20/2024 4:03 PM EDT Temperature 36.2 C (97.2 F) 12/20/2024 4:03 PM EDT Respiratory Rate 16 12/20/2024 4:03 PM EDT Oxygen Saturation 99% 12/20/2024 4:03 PM EDT Inhaled Oxygen Concentration - - Weight 82.4 kg (181 lb 9.6 oz) 12/20/2024 4:03 P M EDT Height 154.9 cm (5' 1 ) 12/20/2024 4:03 PM EDT Body Mass Index 34.31 12/20/2024 4:03 PM EDT documented in this encounter Functional Status * Over the past 2 weeks, how often have you been bothered by any of the following problems? Question Answer Date of Assessment Author Patient Health Questionnaire-2 Score 0 11/29 4:20 PM EDT Jes Toledo [place] * Little interest or pleasure in doing things Answer Date of Assessment Author Not at all 12/20/2024 4:20 PM EDT Rolly Toledo ra, [place] * Feeling down, depressed, or hopeless Answer Date of Assessment Author Not at all 12/20/2024 4:20 PM EDT Rolly Toledo ra, [place] * Trouble falling or staying asleep, or sleeping too much Answer Date of Assessment Author Not at all 12/20/2024 4:20 PM EDT Rolly Toledo ra, [place] * Feeling tired or having little energy Answer Date of Assessment Author Several days 12/20/2024 4:20 PM EDT Rolly Toledo ra, [place] * Poor appetite or overeating Answer Date of Assessment Author Not at all 12/20/2024 4:20 PM EDT Rolly Toledo ra, [place] * Feeling bad about yourself - or that you are a failure or have let yourself or your family down Answer Date of Assessment Author Not at all 12/20/2024 4:20 PM EDT Rolly Toledo ra, [place] * Trouble concentrating on things, such as reading the newspaper or watching television Answer Date of Assessment Author Not at all 12/20/2024 4:20 PM EDT Rolly Toledo ra, [place] * Moving or speaking so slowly that other people could have noticed? Or the opposite - being so fidgety or restless that you have been moving around a lot more than usual. Answer Date of Assessment Author Not at all 12/20/2024 4:20 PM EDT Rolly Toledo ra, [place] * Thoughts that you would be better off or hurting yourself in some way Answer Date of Assessment Author Not at all 12/20/2024 4:20 PM EDT Rolly Toledo ra, [place] * Patient Health Questionnaire-9 Score Answer Date of Assessment Author 1 12/20/2024 4:20 PM EDT Rolly Toledo ra, [place] * Over the last 2 weeks, how often have you been bothered by any of the following problems? Question Answer Date of Assessment Author Feeling nervous, anxious, or on edge 3 11/29 4:20 PM EDT Jes Toledo [place] Not being able to stop or co ntrol worrying 1 12/20/2024 4:20 PM EDT Jes Toledo [place] Worrying too much about diff erent things 1 12/20/2024 4:20 PM EDT Jes Toledo [place] Trouble relaxing 0 12/20/2024 4:20 PM EDT Jes Ley [place] Being so restless that it is hard to sit still 1 12/20/2024 4:20 PM EDT Jes Toledo MA Becoming easily annoyed or irritable 0 11/29 4:20 PM EDT Jes Toledo [place] Feeling afraid as if somethi ng awful might happen 3 12/20/2024 4:20 PM EDT Jes Toledo MA NUNO-7 Total Score 9 12/20/2024 4:20 PM EDT Jes Toledo [place] documented as of this encounter Miscellaneous Notes * Assessment & Plan Note - Yvonne Roldan NP - 12/20/2024 4:16 PM EDTAssociated Problem(s): Dietary counseling Dietary Recommendations: Fruits, vegetables, whole grains, protein foods, and fat-free or low-fat dairy products are healthychoices. Eat different types of protein foods in your diet. This can include seafood, lean meats, poultry, beans, peas, lentils, nuts, seeds, soy products, and eggs. Limit foods and beverages higher in added sugars, saturated fat, and sodium. Exercise Recommendations: At least 150 minutes of moderate-intensity physical activity per week, or an equivalent combinationof moderate- and vigorous-intensity activity documented in this encounter Plan of Treatment Scheduled Orders Name Type Priority Associated Diagnoses Orde r Schedule Comprehensive Metabolic Panel Lab Routine Edema, unspecified type Expected: 12/20/2024 (Approximate), Expires: 12/20/2025 documented as of this encounter Visit Diagnoses Diagnosis Chronic tension-type headache, not intractable- Primary Chronic tension type headache Dietary counseling Dietary surveillance and counseling Exercise counseling Edema, unspecified type documented in this encounter Additional Health Concerns Assessment Noted Time PHQ-9 Depression Total Score: 1 12/21/19 4:20 PM EDT documented as of this encounter Care Teams Ramp Jockey Relationship Specialty Start Date End Date Yvonne Roldan NP [address] [place] [address] PCP - General Family Medicine 09/10/23 Mei loja Oscillograph TechnicianPressure Tank Operator 07/14/24 documented as of this encounter
[2024-12-20 18:22] LABS: Alanine Aminotransferase 12 U/L (0-31); Alkaline Phosphatase 64 U/L (39-117); Anion Gap 12 (12-20); Aspartate Amino Transferase 17 U/L (5-31); Bilirubin Total 0.2 mg/dL (0.0-1.0); Blood Urea Nitrogen 10 mg/dL (9-16); Calcium 8.8 mg/dL (8.4-10.2); Carbon Dioxide 26 mmol/L (22-29); Chloride 104 mmol/L (96-108); Estimated Glomerular Filt Rate > 60; Glucose Random 78 mg/dL (60-115); Potassium 3.5 mmol/L (3.3-5.1); Sodium 138 mmol/L (135-145); Total Protein 7.1 g/dL (6.5-8.0)
== END 2024-12-20 16:22 | disposition home or self-care (01) ==
LOC: HO.HHCL 16:21
PROVIDERS: PCP Nurse Practitioner Family; Visit Provider Nurse Practitioner Family
DX: R60.9 Edema, unspecified (principal)
CPT/HCPCS: 36415; 80053